=== PATIENT | female | born 1980 | race Hispanic/Latino ===

== ENCOUNTER 2019-10-06 00:19 | Emergency (ER) | payer OTHER ==
--- OUTSIDE RECORDS SUMMARY | 2019-10-06 00:23 | XMS REPORT ---
:1980 [facility] Address [address] [place] [address] Care Team Providers Name Role Phone Unavailable Unavailable Unavailable Payers Payer Name Policy Type Policy Number Effective Date Expiration Date Problems This patient has no known problems. Allergies, Adverse Reactions, Alerts Allergy Allergy Status Severity Reaction(s) Onset Inactive Treating Comments Name Type Date Date Clinician morphine DA Active U 2019-05 00:00:0 0 codeine DA Active U 2019-05 00:00:0 0 latex DA Active U 2019-05 00:00:0 0 Medications This patient has no known medications. Results Test Description Test Time Test Comments Text Results Atomic Results Result Comments SURG 2019-06-03 RUN DATE: 14:49:00 06/03/19 [facility] - LAB PAGE 1 RUN TIME: 1449 Specimen Inquiry RUN USER: INTERFACE PATIENT: ENMANUEL STEWART LOC: NAJMA U #: [id number] AGE/SX: 38/F ROOM: RE06/02/19[facility] DR: Bessy Osman : 84 BED: DIS: [place]US[place] [facility] [place] SPEC #: [id number] RECD: 06/02/19 STATUS: MACY REQ # : [id number] GLORIA: 06/02/19 [facility] DR: Bessy Osman MD ENTERED: 06/02/19 SP TYPE: SURG OTHR DR: Edward Salomon MD ORDERED: SURG PATH LVL 2, SURG PATH LVL 4/ COPIES TO: Bessy Osman MD [address] [place] [address] Edward Salomon MD [address] [place] [address] HISTOLOGY: TISSUE ID BLK PCS CASSI LEV PROCEDURE DISPOSITION ____ ___ ___ ___ __ PELVIC ORGANS A 1 1 FALLOPIAN TUBE, B 1 1 PELVIC ORGANS C 1 1 PROCEDURES: SURG PATH LVL 2 (06/02/19) SURG PATH LVL 4 (11/19/19-1430) TISSUES: A. PELVIC ORGANS, NOS - ENDOMETRIAL CURETTING B. FALLOPIAN TUBE, NOS - LEFT AND RIGHT FALLOPIAN TUBE C. PELVIC ORGANS, NOS - LEFT LATERAL WALL UTEROSACRAL ENDOMETRIOSIS CLINICAL HISTORY EXCESSIVE MENSTRUATION -N92.0; PELVIC/ROBERT PAIN -R10.2 CPT CODES CPT CODE(S): 45225 , 39353K7 , , , , , FINAL DIAGNOSIS A. Uterus, endometrium, curettage: ENDOMETRIAL POLYP B. Fallopian tubes, left and right, salpingectomy: CONTINUED ON NEXT PAGE RUN DATE: 06/03/19 [facility] - [facility] PAGE 2 RUN TIME: 1449 Specimen Inquiry RUN USER: INTERFACE SPEC #: [facility]:[id number] PATIENT: ENMANUEL STEWART #[id number] (Continued) FINAL DIAGNOSIS (Continued) FALLOPIAN TUBES WITH PARATUBAL CYSTS C. Uterosacral, left lateral wall, excision: HEMORRHAGIC SOFT TISSUE GROSS DESCRIPTION A. Endometrial curettings. Received in formalin are fragments of arvizu-brown soft tissue admixed with hemorrhagic viscous material and dark brown blood clots, 1.5 x 1.0 x 0.3 cm in aggregate. The entire specimen submitted as A. B. Left and right fallopian tubes. Received in formalin are two short segments of fallopian tubes with fimbriated ends, 1.2 x 1.2 x 0.6 and 1.5 x 1.2 x 0.8 cm and two cylindrical segments of fallopian tubes, 1.7 x 0.6 x 0.3 and 3.0 x 0.6 x 0.4 cm. The segments of fallopian tube have patent lumen and are grossly unremarkable. The short segment of fallopian tube with fimbriated ends are entirely submitted separately labeled B1 and B2 and credit and collections representative sections of the longer segments of fallopian tube in B3 and B4. C. Left lateral wall uterosacral endometriosis. Received in formalin is a rugged irregular fragment of red-brown soft tissue, 3.0 x 0.6 x 0.4 cm. The specimen is serially sectioned and consists of red- brown soft tissue with some cautery contreras along the edges. The entire specimen submitted as C1 and C2. ba/nr Grossing performed at [facility] Pathology, [address] [place] [address], [address], [place] [address]. Dinkey Motor Operator: Bobby Daniel M.D. MICROSCOPIC DESCRIPTION A. Endometrial curettings. Sections demonstrate dilated endometrial glands with prominent blood vessels. No hyperplasia or atypia is seen. B. Left and right fallopian tubes. Sections demonstrate portions of fallopian tubes with fimbriated end and complete cross section. Associated paratubal cysts are also identified. C. Left lateral wall uterosacral endometriosis. Sections demonstrate soft tissue with associated hemorrhage. Definitive endometrial stroma or glands are not identified. Signed SIGNATURE ON FILE Mitch Rivas 1449 END OF REPORT UR HCG QUAL 2019-06-02 07:13:00 Test Item Value Reference Range Comments UR HCG QUAL (test code=HCGQLU) NEGATIVE NEGATIVE URINALYSIS [id number] 11:41:00 Test Item Value Reference Range Comments UA GLUCOSE DIPSTICK (test code=DGLUU) NEGATIVE mg/dL NEG UA BILIRUBIN DIPSTICK (test code=BILU) NEGATIVE mg/dL NEG UA KETONE DIPSTICK (test code=KETU) NEGATIVE mg/dL NEG UA SPECIFIC GRAVITY (test code=SGU) 1.010 SG 1.005-1.030 UA BLOOD DIPSTICK (test code=DARYL) 3+ mg/DL NEG UA PH DIPSTICK (test code=SHELBIE) 7.0 pH UNITS 5.0-7.0 UA PROTEIN DIPSTICK (test code=PROU) NEGATIVE mg/dL NEG UA UROBILINIOGEN DIPSTICK (test code=URO) 0.2 mg/dL <2.0 UA NITRITE DIPSTICK (test code=GERALDO) NEGATIVE SCREEN NEG UA LEUKOCYTE ESTERASE DIPSTICK (test NEGATIVE Leuk/mcL NEGATIVE code=LEUU) Urine Specimen Type: Clean CatchCBC W/AUTO [id number] 11:39:00 Test Item Value Reference Range Comments WHITE BLOOD CELL (test code=WBC) 5.6 K/mm3 3.5-11.0 RED BLOOD CELL (test code=RBC) 4.77 M/mm3 4.70-6.10 HEMOGLOBIN (test code=HGB) 13.0 G/DL 10.4-14.9 HEMATOCRIT (test code=HCT) 39.8 % 31.5-44.1 MEAN CELL VOLUME (test code=MCV) 83.4 Fl 84.5-98.6 MEAN CELL HGB (test code=MCH) 27.3 pg 27.0-34.2 MEAN CELL HGB CONCETRATION (test code=MCHC) 32.7 G/DL 31.5-34.0 RED CELL DISTRIBUTION WIDTH (test code=RDW) 15.9 SD 11.5-14.5 PLATELET COUNT (test code=PLT) 326.0 K/mm3 150-450 MEAN PLATELET VOLUME (test code=MPV) 10.20 fL 7.0-10.5 NEUTROPHIL % (test code=NT%) 59.7 % 40-76 LYMPHOCYTE % (test code=LY%) 30.9 % 20.5-51.1 MONOCYTE % (test code=MO%) 8.1 % 1.7-9.3 EOSINOPHIL % (test code=EO%) 0.9 % 0.0-6.0 BASOPHIL % (test code=BA%) 0.4 % 0.0-2.0 NEUTROPHIL # (test code=NT#) 3.32 K/mm3 1.8-7.6 LYMPHOCYTE # (test code=LY#) 1.7 K/mm3 0.6-3.2 MONOCYTE # (test code=MO#) 0.5 K/mm3 0.3-1.1 EOSINOPHIL # (test code=EO#) 0.1 K/mm3 0.0-0.4 BASOPHIL # (test code=BA#) 0.0 K/mm3 0.0-0.1 MANUAL DIFF REQUIRED (test code=MDIFF) NO DIFF/SCN CRITERIA
[2019-10-06] MEDS ORDERED: MECLIZINE HCL 12.5 MG TAB ONE (01:25)
[2019-10-06] MEDS ORDERED: METHYLPREDNISOLONE 125 MG INJ ONE (01:25)
[2019-10-06] MEDS ORDERED: NA CHLORIDE 0.9% 1,000 ML ONE (01:25)
[2019-10-06 02:03] LABS: Absolute Lymphocytes (CBC) 3.4 K/uL (0.7-4.9); Basophils % 0.9 % (0-1.3); Hematocrit 39.1 % (36.0-45.0); Lymphocytes % 41.5 % (15.3-44.8); RBC Red Blood Cell Count 4.92 M/uL (3.86-4.86)
[2019-10-06 02:10] LABS: BUN Blood Urea Nitrogen 13 mg/dL (7-18); Bicarbonate 27 mmol/L (21-32); Glucose Level 86 mg/dL (74-106); Potassium 3.7 mmol/L (3.5-5.1); Sodium Level 139 mmol/L (136-145)
--- NOTE | 2019-10-06 02:51 | EDPHYS ---
Physician Documentation [facility] Name: Juany Curtis Age: 39 yrs Sex: Female : 1980 Arrival Date: 10/06/2019 Time: 00:24 Bed 6 Private MD: ED Physician Kevan Pickering HPI: 10/05 01:23 This 39 yrs old Female presents to ER via Ambulatory with complaints of pkl Dizziness, Ear Pain, Neck Problem, Chest Heaviness. 01:23 The patient presents with lightheadedness, sense of spinning. Onset: The pkl symptoms/episode began/occurred just prior to arrival, 2 hour(s) ago. The patient has experienced a previous episode, approximately 10 days ago. 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 - Social history:: Smoking status: Patient denies any tobacco usage or history of. ROS: 01:23 Eyes: Negative for injury, pain, redness, and discharge, ENT: Negative for injury, pkl pain, and discharge, Neck: Negative for injury, pain, and swelling, Cardiovascular: Negative for chest pain, palpitations, and edema, Respiratory: Negative for shortness of breath, cough, wheezing, and pleuritic chest pain, Abdomen/GI: Negative for abdominal pain, nausea, vomiting, diarrhea, and constipation, Back: Negative for injury and pain, : Negative for injury, bleeding, discharge, and swelling, MS/Extremity: Negative for injury and deformity, Skin: Negative for injury, rash, and discoloration. 01:23 Neuro: Positive for dizziness. Exam: 01:23 Head/Face: Normocephalic, atraumatic. Eyes: Pupils equal round and reactive to light, pkl extra-ocular motions intact. Lids and lashes normal. Conjunctiva and sclera are non-icteric and not injected. Cornea within normal limits. Periorbital areas with no swelling, redness, or edema. ENT: Nares patent. No nasal discharge, no septal abnormalities noted. Tympanic membranes are normal and external auditory canals are clear. Oropharynx with no redness, swelling, or masses, exudates, or evidence of obstruction, uvula midline. Mucous membranes moist. Neck: Trachea midline, no thyromegaly or masses palpated, and no cervical lymphadenopathy. Supple, full range of motion without nuchal rigidity, or vertebral point tenderness. No Meningismus. Chest/axilla: Normal chest wall appearance and motion. Nontender with no deformity. No lesions are appreciated. Cardiovascular: Regular rate and rhythm with a normal S1 and S2. No gallops, murmurs, or rubs. Normal PMI, no JVD. No pulse deficits. Respiratory: Lungs have equal breath sounds bilaterally, clear to auscultation and percussion. No rales, rhonchi or wheezes noted. No increased work of breathing, no retractions or nasal flaring. Abdomen/GI: Soft, non-tender, with normal bowel sounds. No distension or tympany. No guarding or rebound. No evidence of tenderness throughout. Back: No spinal tenderness. No costovertebral tenderness. Full range of motion. Skin: Warm, dry with normal turgor. Normal color with no rashes, no lesions, and no evidence of cellulitis. MS/ Extremity: Pulses equal, no cyanosis. Neurovascular intact. Full, normal range of motion. Neuro: Awake and alert, GCS 15, oriented to person, place, time, and situation. Cranial nerves II-XII grossly intact. Motor strength 5/5 in all extremities. Sensory grossly intact. Cerebellar exam normal. Normal gait. Vital Signs: 00:38 BP 153 / 93; Pulse 84; Resp 16 S; Temp 98.5(O); Pulse Ox 100% on R/A; Weight 68.04 kg bb (R); Height 5 ft. 0 in. (152.40 cm) (R); Pain 4/10; 01:43 BP 149 / 87; Pulse 79; Resp 16 S; Pulse Ox 100% on R/A; jd3 02:40 Pulse 65; Resp 14; Pulse Ox 100% on R/A; ch 02:43 BP 130 / 68; ch 03:00 Temp 98.3(O); jd3 00:38 Body Mass Index 29.29 (68.04 kg, 152.40 cm) bb MDM: 00:27 Patient medically screened. pkl 02:46 Data reviewed: vital signs, nurses notes, lab test result(s). ED course: Patient pkl feeling better. Discussed lab. results with patient Advised to follow up with PCP in 2 to 3 days. Patient understood instructions. 10/05 01:14 Order name: CBC with Diff; Complete Time: 02:44 pkl 10/05 01:14 Order name: Chem 7; Complete Time: 02:44 pkl 10/05 01:14 Order name: Flu; Complete Time: :44 pkl 10/05 01:14 Order name: Strep; Complete Time: :44 pkl 10/05 01:31 Order name: Sed Rate; Complete Time: 44 pkl 10/05 02:26 Order name: Throat Culture EDMS Administered Medications: 01:28 Drug: Antivert 50 mg Route: PO; jd3 02:25 Follow up: Response: No adverse reaction jd3 01:42 Drug: NS 0.9% 1000 ml Route: IV; Rate: 1000 ml; Site: right antecubital; jd3 02:40 Follow up: Response: No adverse reaction; IV Status: Completed infusion; IV Intake: jd3 1000ml 01:42 Drug: SOLU-Medrol 125 mg Route: IVP; Site: right antecubital; jd3 02:40 Follow up: Response: No adverse reaction jd3 Disposition: 10/06/19 02:50 Discharged to Home. Impression: Acute labyrinthitis. - Condition is Stable. - Prescriptions for Antivert 25 mg Oral Tablet - take 1 tablet by ORAL route every 8 hours As needed; 20 tablet. - Medication Reconciliation Form, Thank You Letter, Antibiotic Education, Prescription Opioid Use, Work release form form. - Follow up: Private Physician; When: 2 - 3 days; Reason: Re-evaluation by your physician. - Problem is new. - Symptoms have improved. Signatures: Dispatcher [employer] EDMS Kevan Pickering MD MD pkBarbara Wu, RN RN Manfred Mckeon RN RN jd3 Corrections: (The following items were deleted from the chart) 03:04 02:50 10/06/2019 02:50 Discharged to Home. Impression: Acute labyrinthitis. Condition jd3 is Stable. Forms are Medication Reconciliation Form, Thank You Letter, Antibiotic Education, Prescription Opioid Use. Follow up: Private Physician; When: 2 - 3 days; Reason: Re-evaluation by your physician. Problem is new. Symptoms have improved. pkl
--- NOTE | 2019-10-06 02:51 | ER ---
Nurse's Notes [facility] Name: Juany Curtis Age: 39 yrs Sex: Female : 1980 Arrival Date: 10/06/2019 Time: 00:24 Bed 6 Private MD: Diagnosis: Acute labyrinthitis Presentation: 10/05 00:38 Chief complaint: Patient states: about 10 days ago she started feeling dizzy and faint bb went to her PCP and was given antibiotics for an ear infection then started feeling better but earlier tonight she had another episode of feeling dizzy but now she is having ear pain again and neck pain. Coronavirus screen: Patient denies fever greater than 100.4F, cough, shortness of breath, or difficulty breathing. Proceed with normal triage process. Ebola Screen: No symptoms or risks identified at this time. Initial Sepsis Screen: Does the patient meet any 2 criteria? No. Patient's initial sepsis screen is negative. Does the patient have a suspected source of infection? No. Patient's initial sepsis screen is negative. Risk Assessment: Do you want to hurt yourself or someone else? Patient reports no desire to harm self or others. Onset of symptoms was October 02, 2019. 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 - Social history:: Smoking status: Patient denies any tobacco usage or history of. Screenin:43 Abuse screen: Denies threats or abuse. Nutritional screening: No deficits noted. jd3 Tuberculosis screening: No symptoms or risk factors identified. Fall Risk Ambulatory Aid- None/Bed Rest/Nurse Assist (0 pts). Gait- Normal/Bed Rest/Wheelchair (0 pts) Mental Status- Oriented to own ability (0 pts). Total Haji Fall Scale indicates No Risk (0-24 pts). Assessment: 00:40 General: Appears in no apparent distress. uncomfortable, Behavior is calm, cooperative, jd3 appropriate for age, anxious. Pain: Complains of pain in chest and neck Quality of pain is described as pressure. Neuro: Level of Consciousness is awake, alert, obeys commands, Oriented to person, place, time, situation, Reports dizziness. Cardiovascular: Reports chest pressure Heart tones S1 S2 present Capillary refill < 3 seconds Patient's skin is warm and dry. Respiratory: Airway is patent Respiratory effort is even, unlabored, Respiratory pattern is regular, symmetrical, Breath sounds are clear bilaterally. Denies cough. GI: Abdomen is round non-distended, Patient currently denies constipation, diarrhea, nausea, vomiting. : No signs and/or symptoms were reported regarding the genitourinary system. EENT: Throat is clear Reports pain on and off in ears.. Derm: Skin is intact, Skin is dry, Skin is normal, Skin temperature is warm. Musculoskeletal: Circulation, motion, and sensation intact. Range of motion: intact in all extremities. 01:43 Reassessment: Patient appears in no apparent distress at this time. No changes from jd3 previously documented assessment. Patient and/or family updated on plan of care and expected duration. Pain level reassessed. Patient is alert, oriented x 3, equal unlabored respirations, skin warm/dry/pink. 02:40 Reassessment: Patient appears in no apparent distress at this time. Patient and/or ch family updated on plan of care and expected duration. Pain level reassessed. Patient is alert, oriented x 3, equal unlabored respirations, skin warm/dry/pink. Patient states feeling better. Patient states symptoms have improved. Vital Signs: 00:38 BP 153 / 93; Pulse 84; Resp 16 S; Temp 98.5(O); Pulse Ox 100% on R/A; Weight 68.04 kg bb (R); Height 5 ft. 0 in. (152.40 cm) (R); Pain 4/10; 01:43 BP 149 / 87; Pulse 79; Resp 16 S; Pulse Ox 100% on R/A; jd3 02:40 Pulse 65; Resp 14; Pulse Ox 100% on R/A; ch 02:43 BP 130 / 68; ch 03:00 Temp 98.3(O); jd3 00:38 Body Mass Index 29.29 (68.04 kg, 152.40 cm) ED Course: 00:24 Patient arrived in ED. cf2 00:27 Kevan Pickering MD is Attending Physician. pkday 00:36 Manfred Seay RN is Primary Nurse. jd3 00:43 Triage completed. bb 00:43 Patient has correct armband on for positive identification. Bed in low position. Call jd3 light in reach. Side rails up X 1. Pulse ox on. NIBP on. 00:43 Arm band placed on. jd3 01:20 No provider procedures requiring assistance completed. Inserted saline lock: 22 gauge ch in right antecubital area, using aseptic technique. Blood collected. Started by Addie. 02:43 No apparent distress. Resting quietly. ch 03:01 IV discontinued, intact, bleeding controlled, No redness/swelling at site. Pressure jd3 dressing applied. Administered Medications: 01:28 Drug: Antivert 50 mg Route: PO; jd3 02:25 Follow up: Response: No adverse reaction jd3 01:42 Drug: NS 0.9% 1000 ml Route: IV; Rate: 1000 ml; Site: right antecubital; jd3 02:40 Follow up: Response: No adverse reaction; IV Status: Completed infusion; IV Intake: jd3 1000ml 01:42 Drug: SOLU-Medrol 125 mg Route: IVP; Site: right antecubital; jd3 02:40 Follow up: Response: No adverse reaction jd3 Intake: 02:40 IV: 1000ml; Total: 1000ml. jd3 Outcome: 02:50 Discharge ordered by . pkl 03:01 Discharged to home ambulatory, with family. jd3 03:01 Condition: stable 03:01 Discharge instructions given to patient, Instructed on discharge instructions, follow up and referral plans. medication usage, Demonstrated understanding of instructions, follow-up care, medications, Prescriptions given X 1. 03:04 Patient left the ED. jd3 Signatures: Brittany Ibarra, RN RN Kevan Pickering MD MD pkl Ballard, Brenda, RN RN Manfred Seay RN RN jYodit Ennis cf2
[2019-10-06 03:18] VITALS: O2SAT 100
[2019-10-06 03:22] VITALS: BP 130/68
[2019-10-06 03:23] VITALS: TEMP 98.3
== END 2019-10-06 03:04 | disposition home or self-care (01) ==
LOC: ER 00:19
DX: H83.09 Labyrinthitis, unspecified ear (principal); I10 Essential (primary) hypertension; E03.9 Hypothyroidism, unspecified; Z88.5 Allergy status to narcotic agent
CPT/HCPCS: 96361; 87070; 85025; 80048; 36415; 87081; 85652; 87804 ×2; 96374; 99284; J8597; J7030; J2930

== ENCOUNTER 2020-03-17 06:55 | Day surgery (SDC) | payer OTHER ==
[2020-03-14 12:53] LABS: Urine Appearance CLEAR; Urine Bilirubin NEGATIVE (NEG); Urine Blood NEGATIVE (NEG); Urine Color YELLOW; Urine Glucose NEGATIVE (NEG); Urine Protein NEGATIVE (NEG); Urine Specific Gravity 1.025 (1.005-1.030); Urine pH 6.5 (5.0-7.0)
[2020-03-14 12:54] LABS: Urine Microscopic Reflex NO UMIC
[2020-03-14 13:23] LABS: Absolute Lymphocytes (CBC) 2.2 K/uL (0.7-4.9); Basophils % 0.8 % (0-1.3); Hematocrit 36.2 % (36.0-45.0); Lymphocytes % 27.3 % (15.3-44.8); MPV 9.2 fL (7.6-11.3); RBC Red Blood Cell Count 4.71 M/uL (3.86-4.86)
--- OUTSIDE RECORDS SUMMARY | 2020-03-17 07:23 | XMS REPORT | Continuity of Care Document ---
:1980 Author Organization [facility] t Address [address] [place] [address] Care Team Providers Name Role Phone Unavailable Unavailable Unavailable Payers Payer Name Policy Type Policy Number Effective Date Expiration Date S ource Problems This patient has no known problems. Allergies, Adverse Reactions, Alerts Allergy Allergy Status Severity Reaction(s) Onset Inactive Treating Comm ents Source Name Type Date Date Clinician morphine DA Active 2018-07 [facility] 07-22 [place] 00:00: d 00 [facility] codeine DA Active 2018-07 [facility] 07-22 [place] 00:00: d 00 [facility] latex DA Active 2018-07 [facility] 07-22 [place] 00:00: d 00 [facility] Medications This patient has no known medications. Procedures This patient has no known procedures. Results Test Description Test Time Test Comments Results Result Comments Source SURG 2019-06-03 14:49:00 --------RUN DATE: 06/03/19 [facility] - LAB PAGE 1 RUN TIME: 1449 Specimen Inquiry RUN USER: INTERFACE --------PATIENT: ENMANUEL STEWART LOC: NAJMA U #: [id number] AGE/SX: 38/F ROOM: RE06/02/19[facility] DR: Bessy Osman : [birth year] BED: DIS: STATUS: [facility] TLOC: -------- SPEC #: [id number]:[id number] RECD: 06/02/19 STATUS: MACY REQ #: [id number] GLORIA: 06/02/[address] [facility] [address]: Bessy Osman MD ENTERED: 06/02/197220 SP TYPE: SURG OTHR DR: Edward Salomon MD ORDERED: SURG PATH LVL 2, SURG PATH LVL / COPIES TO: Bessy Osman MD [address] [place] [address] Edward Salomon MD [address] [place] [address] HISTOLOGY: TISSUE ID BLK PCS CASSI LEV PROCEDURE DISPOSITION ____ ___ ___ ___ PELVIC ORGANS A 1 1 FALLOPIAN TUBE, B 1 1 PELVIC ORGANS C 1 1 PROCEDURES: SURG PATH LVL 2 (06/02/19-143) SURG PATH LVL 4 (06/02/19-1429) TISSUES: A. PELVIC ORGANS, NOS - ENDOMETRIAL CURETTING B. FALLOPIAN TUBE, NOS - LEFT AND RIGHT FALLOPIAN TUBE C. PELVIC ORGANS, NOS - LEFT LATERAL WALL UTEROSACRAL ENDOMETRIOSIS CLINICAL HISTORY EXCESSIVE MENSTRUATION -N92.0; PELVIC/ROBERT PAIN -R10.2 CPT CODES CPT CODE(S): 65668 , 89550F1 , , , , , FINAL DIAGNOSIS A. Uterus, endometrium, curettage: ENDOMETRIAL POLYP B. Fallopian tubes, left and right, salpingectomy: CONTINUED ON NEXT PAGE --------RUN DATE: 06/03/19 [facility] - [facility] PAGE 2 RUN TIME: 1449 Specimen Inquiry RUN USER: INTERFACE --------SPEC #: [facility]:[id number] PATIENT: ENMANUEL STEWART #[id number] (Continued) FINAL DIAGNOSIS (Continued) FALLOPIAN TUBES WITH [...] submitted separately labeled B1 and B2 and aircraft sales representative sections of the longer segments of fallopian tube in B3 and B4. C. Left lateral wall uterosacral endometriosis. Received in formalin is a rugged irregular fragment of red-brown soft tissue, 3.0 x 0.6 x 0.4 cm. The specimen is serially sectioned and consists of red-brown soft tissue with some cautery contreras along the edges. The entire specimen submitted as C1 and C2. ba/nr Grossing performed at [facility] Pathology, [address], [address], [place] [address]. Program Advisor: Bobby Daniel M.D. MICROSCOPIC DESCRIPTION A. Endometrial [...] identified. Signed SIGNATURE ON FILE Mitch Rivas 06/03/19 0239 -------- END OF REPORT UR HCG QUAL 2019-06-02 07:13:00 Test Item Value Reference Range Interpretation Comme nts UR HCG QUAL (test code = HCGQLU) NEGATIVE NEGATIVE URINALYSIS [id number] 11:41:00 Test Item Value Reference Range Interpretation Comments UA GLUCOSE DIPSTICK (test NEGATIVE mg/dL NEG code = DGLUU) UA BILIRUBIN DIPSTICK (test NEGATIVE mg/dL NEG code = BILU) UA KETONE DIPSTICK (test NEGATIVE mg/dL NEG code = KETU) UA SPECIFIC GRAVITY (test 1.010 SG 1.005-1.030 code = SGU) UA BLOOD DIPSTICK (test 3+ mg/DL NEG A code = DARYL) UA PH DIPSTICK (test code = 7.0 pH UNITS 5.0-7.0 SHELBIE) UA PROTEIN DIPSTICK (test NEGATIVE mg/dL NEG code = PROU) UA UROBILINIOGEN DIPSTICK 0.2 mg/dL <2.0 (test code = URO) UA NITRITE DIPSTICK (test NEGATIVE SCREEN NEG code = GERALDO) UA LEUKOCYTE ESTERASE NEGATIVE Leuk/mcL NEGATIVE DIPSTICK (test code = LEUU) Urine Specimen Type: Clean CatchCBC W/AUTO [id number] 11:39:00 Test Item Value Reference Range Interpretation Comments WHITE BLOOD CELL (test code = 5.6 K/mm3 3.5-11.0 N WBC) RED BLOOD CELL (test code = RBC) 4.77 M/mm3 4.70-6.10 N HEMOGLOBIN (test code = HGB) 13.0 G/DL 10.4-14.9 N HEMATOCRIT (test code = HCT) 39.8 % 31.5-44.1 N MEAN CELL VOLUME (test code = 83.4 Fl 84.5-98.6 L MCV) MEAN CELL HGB (test code = MCH) 27.3 pg 27.0-34.2 N MEAN CELL HGB CONCETRATION (test 32.7 G/DL 31.5-34.0 N code = MCHC) RED CELL DISTRIBUTION WIDTH (test 15.9 SD 11.5-14.5 H code = RDW) PLATELET COUNT (test code = PLT) 326.0 K/mm3 150-450 N MEAN PLATELET VOLUME (test code = 10.20 fL 7.0-10.5 N MPV) NEUTROPHIL % (test code = NT%) 59.7 % 40-76 N LYMPHOCYTE % (test code = LY%) 30.9 % 20.5-51.1 N MONOCYTE % (test code = MO%) 8.1 % 1.7-9.3 N EOSINOPHIL % (test code = EO%) 0.9 % 0.0-6.0 N BASOPHIL % (test code = BA%) 0.4 % 0.0-2.0 N NEUTROPHIL # (test code = NT#) 3.32 K/mm3 1.8-7.6 N LYMPHOCYTE # (test code = LY#) 1.7 K/mm3 0.6-3.2 N MONOCYTE # (test code = MO#) 0.5 K/mm3 0.3-1.1 N EOSINOPHIL # (test code = EO#) 0.1 K/mm3 0.0-0.4 N BASOPHIL # (test code = BA#) 0.0 K/mm3 0.0-0.1 N MANUAL DIFF REQUIRED (test code = NO DIFF/SCN CRITERIA MDIFF)
[2020-03-17 07:32] LABS: Specific Gravity 1.025 (1.005-1.030)
[2020-03-17] MEDS ORDERED: propofoL 200 MG/20 ML VIAL IV ONE (07:37)
[2020-03-17] MEDS ORDERED: FENTANYL CITR 250 MCG/5 ML ONE (07:37)
[2020-03-17] MEDS ORDERED: dexAMETHasone 10 MG/ML VIAL ONE (07:37)
[2020-03-17] MEDS ORDERED: LIDOCAINE 1% MPF 5 ML VIAL ONE (07:37)
[2020-03-17] MEDS ORDERED: NS 0.9% VIAL 10 ML ONE (07:38)
[2020-03-17] MEDS ORDERED: ONDANSETRON 4 MG/2 ML VIAL ONE (07:38)
[2020-03-17] MEDS ORDERED: MIDAZOLAM HCL 2 MG/2 ML INJ ONE (07:38)
[2020-03-17] MEDS ORDERED: VECURONIUM 10 MG/VIAL IV ONE ×2 (07:38→07:42)
[2020-03-17] MEDS ORDERED: LANO/MINERAL OIL/PETRO 3.5 GM ONE (07:42)
[2020-03-17] MEDS ORDERED: CEFAZOLIN/SWI 2gm 2 GM/20 ML SYR ONE (07:55)
[2020-03-17] MEDS ORDERED: SCOPOLAMINE HYDROBROMIDE PATCH TD ONE (07:55)
[2020-03-17] MEDS ORDERED: Ringers Lactate 1,000 ML IV ONE ×2 (07:55→13:12)
[2020-03-17] MEDS ORDERED: BUPIVACAINE 0.25% PF 30 ML VIAL ONE (08:42)
[2020-03-17] MEDS: Ringers Lactate 1,000 ML IV ONE ×2 (10:11→10:25)
[2020-03-17] MEDS ORDERED: KETOROLAC 30 MG/ML INJ ONE (10:23)
[2020-03-17] MEDS ORDERED: NEOSTIGMINE 1 MG/ML -5 ML ONE (10:24)
[2020-03-17] MEDS ORDERED: GLYCOPYRROLATE 0.2 MG/ML SYR ONE ×2 (10:24)
[2020-03-17] MEDS: HYDROMORPHONE HCL 1 MG/ML INJ ONE ×2 (11:10→11:15)
[2020-03-17] MEDS ORDERED: HYDROCODONE/APAP 5/325 MG TAB ONE (11:52)
[2020-03-17 12:08] VITALS: TEMP 97.1
[2020-03-17] MEDS ORDERED: PROMETHAZINE INJ 25 MG/ML AMP ONE (13:12)
[2020-03-17 13:39] VITALS: BP 92/48; O2SAT 100
--- NOTE | 2020-03-17 22:57 | OP ---
Date of Procedure: 03/17/2020 Surgeon: Bessy Osman MD Patient Financial Specialist: Drea Vences Preoperative Diagnoses: Recurrent pelvic pain, menorrhagia (abnormal uterine bleeding-leiomyoma), en dometriosis, deep dyspareunia. Postoperative Diagnoses: Recurrent pelvic pain, menorrhagia (abnormal uterine bleeding-leiomyoma), e ndometriosis, deep dyspareunia, umbilical scar with keloid. Procedures Performed: 1.Total laparoscopic hysterectomy. 2.Left oophorectomy. 3.Endometriosis excision. 4.Umbilical scar keloid removal and revision. Anesthesia: General endotracheal. Estimated Blood Loss: Minimal, less than 50. Urine Output: 250. Specimens: Uterus and left ovary, endometriosis on the left IP ligament and broad ligament proximal to the round ligament. Findings: Endometriosis seen on the left IP ligament and left broad ligament and proximal to the rou nd ligament. Then, there were 2 endometriotic implants on the distal uterosacral ligament on the rig ht side. Periureteric endometriosis removed. The entire rest of the pelvic peritoneum was free of e ndometriosis. There was scar at the scar from the bladder flap. The scar was taken down wi thout any problems. Appendix absent, no stump seen at the end of the cecum. Uterus was slightly enl arged, retroflexed. Right ovary was left intact. Indications: The patient is a 39-year-old who had endometriosis excision and sampling of the endomet rium, did well for some time and then had recurrent pain and dyspareunia and persistent heavy bleedin g, which just became more painful. So, we have discussed about surgical and medical options. She wa s consented for proceeding with the surgical option as she wanted to have a fairly intermediate solution . She fully understood that the pelvic pain may not be resolved and if there is any endometriosis fo und and removed while she could feel better, but there could be recurrent endometriosis. Preservatio n of one or both ovaries was discussed. If there was significant endometriosis on one of the ovaries or there would be a need to remove it in order to prevent recurrent pain or operation that it would be removed. Then, she was consented and brought to the OR. Description Of Procedure: 2 g Ancef given, the patient was taken back to OR, placed in a supine fash ion on operating table. General anesthesia given, placed in a dorsal lithotomy position. Arms tucke d by the side position and checked uterus with cervix anterior retroflexed, no adnexal masses were pa lpable, no nodularity of the uterosacral was palpable. Abdomen, vulva, vagina, and perineum prepped and draped in a sterile fashion. Meade placed to drain the bladder and attached for retrograde filling and large VCare introduced into the uterus and fixed in place, this area draped. 1 cm supraumbilical incision made with a scalpel. The keloid scar that was very thick and deep was a ll excised circumferentially after injecting local here. Then, once the keloid scar was removed, yulissa montemayor went down all the way to her fascia. The fascia was thickened without any other significant hernia or abnormalities, so plan was to excise it all the way to the level of the fascia and shave it off t he fascia and close it, so 0 Vicryl on both sides. Peritoneum entered sharply. S-retract ors placed. Frandy introduced. Site of entry checked after complete insufflation. The patient was placed in T-sophia. Gallbladder, liver, upper abdominal surfaces, omentum were all unremarkable. Afte r the patient was in T-sophia, 5 left and 10 suprapubic ports were placed under direct vision after darin vey of the pelvic cavity as dictated above in the findings. Procedure was started. Endometriosis on the distal right uterosacral ligament was cauterized with the tip of a bipolar [place] grasper re use removing this would detach the uterosacral from the apex of the vagina. There was no other endometriosis seen in the entire pelvic cavity other than on the IP ligament and t he left broad ligament superior to the round ligament insertion so plan was to remove the left ovary. So, infundibulopelvic ligament was cauterized and cut. The broad ligament was taken down along wit h the round ligament. All the endometriosis was included in the specimen. The ovary was detached an d placed in the posterior cul-de-sac. Then, peritoneum opened distal to the round ligament all the w ay to the bladder flap on the opposite side. Then, posteriorly the peritoneum dissected to the level where endometriosis was excised in the past. This was a bit scarred, so vessels were isolated first , vessels taken down, then dissection was performed to expose the cup on the left side then on the ri ght side. The utero-ovarian ligament, the round ligament and broad ligament were all removed and per itoneum opened to connect the bladder flap and posteriorly taken down to the distal uterosacral with leaving the uterosacrals attached to the apex of the vagina. The vessels were taken down on the righ t side with the basket tip bipolar as well as the LigaSure. Once the vessels on this side were taken , cardinal ligaments were also taken down with the LigaSure, opposite side similar dissection was per formed, then circumferential colpotomy with a monopolar hook blade and specimen detached and pulled o ut through the vagina, ovary pulled out through the vagina as well. Thorough irrigation and suction were performed. There was excellent hemostasis at all the sites and the pedicles, closure of the vag inal cuff after thorough irrigation, 2 simple angle stitches and 3 [id number] in the center. T he uterosacrals were still attached to the apex and they created good apical suspension. All the pedicles were checked. There was excellent peristalsis of the ureter. No evidence of electr ical, mechanical, or thermal injury. Trocars were removed under direct vision. Gas was desufflated. Fascia and skin injected with 0.25% Marcaine at entry and exit. Then, at the umbilical scar, there was a good 1.5 cm fascial incision, so this was closed with the lp of 0 Vicryl in [id number] fashion to reduce the number of knots instead of tying them at both ends. Then, with a 3-0 Monocryl, the umbilicus was reshaped. Then, 5-0 chromic was used to close the skin in a simple interrupted fashion for the keloid to not recur and heal better. Same suture was used for all other skin closures. Fascia at the suprapubic area closed with simple 0 Mychal ryl stitch. All the instrument, needle, and sponge counts were done and were correct at the end of t he case. Meade and the vaginal occluder sponge were removed. She was then taken to the PACU in a stable condition. She has a 1-week followup with me. MICHAEL/CATRACHITO Voice ID: [id number] Report ID: [id number]
== END 2020-03-17 13:59 | disposition home or self-care (01) ==
LOC: OR 06:55
PROVIDERS: ATTEND Obstetrics & Gynecology
PROC: 0UT14ZZ Resection of Left Ovary, Percutaneous Endoscopic Approach (ICD-10-PCS; 2020-03-17)
PROC: 0U544ZZ Destruction of Uterine Supporting Structure, Percutaneous Endoscopic Approach (ICD-10-PCS; 2020-03-17)
PROC: 0JB80ZZ Excision of Abdomen Subcutaneous Tissue and Fascia, Open Approach (ICD-10-PCS; 2020-03-17)
PROC: 0UT94ZZ Resection of Uterus, Percutaneous Endoscopic Approach (ICD-10-PCS; principal; 2020-03-17 08:00)
DX: N92.0 Excessive and frequent menstruation with regular cycle (principal); N93.8 Other specified abnormal uterine and vaginal bleeding; D25.2 Subserosal leiomyoma of uterus; N80.3 Endometriosis of pelvic peritoneum; N80.8 Other endometriosis; N94.12 Deep dyspareunia; N88.8 Other specified noninflammatory disorders of cervix uteri; N72 Inflammatory disease of cervix uteri; N83.02 Follicular cyst of left ovary; L91.0 Hypertrophic scar; Z20.828 Contact with and (suspected) exposure to other viral communicable diseases; D50.0 Iron deficiency anemia secondary to blood loss (chronic); E03.9 Hypothyroidism, unspecified; I10 Essential (primary) hypertension; Z79.899 Other long term (current) drug therapy
CPT/HCPCS: 85025; 36415; 86900; 86850; 81025; 86901; 88307; 81003; 58571; 58662; 11401; 12031; U0002; J2704; J2550; J2250; J3010; J1100; J1170; J2710; J0690; J7120 ×3; J2405

== ENCOUNTER → 2023-08-06 | Emergency (ER) | payer OTHER ==
[~2023-08-06] MED LIST: KETOROLAC 30 MG/ML INJ ONE
--- OUTSIDE RECORDS SUMMARY | 2023-08-06 10:40 | XMS REPORT | Continuity of Care Document ---
Author Name Unknown Address [address] [facility] [address] [place] [address] [facility] thconnect Address [address] [facility]. [address] [place] [address] Care Team Providers Care Steel Sash Erector Name Role Phone Edward Salomon MD Primary Care Physician NICHOL GOMEZ Attending Clinician Unavailable GC_GCBZW_Kadipresley_S Attending Clinician UnavailLEXUS Sen Attending Clinician Unavail Lexus Alonso MD Attending Clinician [phone] Nichol Gomez MD Attending Clinician [phone] Aravind MCNAMARA, Monse CarrascoHBebeto Attending Clinician + [phone] Doctor Unassigned, [place] Attending Clinician U EDWARD Robles Attending Clinician Edward Becker MD Attending Clinician + [phone] Visits, [place] Nurse Attending Clinician Pinky ilable Provider, [facility] Attending Clinician Un available Lab, [facility] F[facility] Pob I Attending Clinician UnavailRaphael Gary Attending Clinician RAPHAEL ROMERO Attending Clinician Unavailab rishabh GC_GCBZW_Kadiyala_S Admitting Clinician MIKAL Colvin Admitting Clinician UnavailEDWARD Fallon Admitting Clinician Riccardo gallegos Payers Payer Name Policy Type Policy Number Effective Date Expirati on Date Source [facility] [id number] 2019 00:00:00 [facility] [id number] 2014 00:00:00 Problems Condition Name Condition Details Condition Category Status Onset Date Resolution Date Last Treatment Date Treating Clinician Comments Source Renal artery stenosis Renal artery stenosis Disease Active 2022-07 00:00: 00 [facility] Primary hypertensi on Primary hypertensi on Disease Active 2022-07 00:00: 00 [facility] Dizziness and giddiness Dizziness and giddiness Disease Active 2022-07 00:00: 00 [facility] Snores Snores Disease Active 2022-07 00:00: 00 [facility] Hypothyroi dism Hypothyroi dism Disease Active 03-14 00:00: 00 Overview: Formattin g of this note might be different from the original. 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 [facility] Allergies, Adverse Reactions, Alerts Allergy Name Allergy Type Status Severity Reaction(s) Onset Date Inactive Date Treating Clinician Comments Source morphine DA Active U 2018-07 00:00: 00 [facility] codeine DA Active U 2018-07 00:00: 00 [facility] latex DA Active U 2018-07 00:00: 00 [facility] NO KNOWN ALLERGIE S Drug Class Active [facility] Social History Social Habit Start Date Stop Date Quantity Comments [facility] function 2023-05-31 00:00:00 2023-05-31 00:00:00 [facility] Exposure to SARS-CoV-2 (event) 2022-08-27 00:00:00 2022-09-06 14:06:00 Not sure [facility] Alcohol intake 2022-09-06 00:00:00 2022-09-06 00:00:00 Current non-drinker of alcohol (finding) [facility] Sex Assigned At 1980 00:00:00 1980 00:00:00 [facility] Smoking Status Start Date Stop Date Source Never smoked tobacco [facility] Medications Ordered Medication Name Filled Medication Name Start Date Stop Date Current Medication? Ordering Clinician Indication Dosage Frequency Signature (SIG) Comments Components Source lisinopril (ZESTRIL) 5 mg tablet 2022-07 14:52: 02 05-15 00:00 :00 No Take by mouth daily. [facility] amLODIPine (NORVASC) 5 mg tablet 2022-07 14:52: 02 05-15 00:00 :00 No 5mg Take 5 mg by mouth daily. [facility] lisinopril (ZESTRIL) 5 mg tablet 2022-07 14:52: 02 05-15 00:00 :00 No Take by mouth daily. [facility] amLODIPine (NORVASC) 5 mg tablet 2022-07 14:52: 02 05-15 00:00 :00 No 5mg Take 5 mg by mouth daily. [facility] lisinopril (ZESTRIL) 5 mg tablet 2022-07 14:52: 02 05-15 00:00 :00 No Take by mouth daily. [facility] amLODIPine (NORVASC) 5 mg tablet 2022-07 14:52: 02 05-15 00:00 :00 No 5mg Take 5 mg by mouth daily. [facility] lisinopriL 5 mg tablet 2022-07 00:00: 00 Yes [id number] 5mg Take 1 tablet by mouth in the morning. [facility] amLODIPine 5 mg tablet 2022-07 00:00: 00 Yes [id number] 5mg Take 1 tablet by mouth in the morning. [facility] lisinopriL 5 mg tablet 2022-07 00:00: 00 Yes [id number] 5mg Take 1 tablet by mouth in the morning. [facility] amLODIPine 5 mg tablet 2022-07 00:00: 00 Yes [id number] 5mg Take 1 tablet by mouth in the morning. [facility] lisinopriL 5 mg tablet 2022-07 00:00: 00 Yes [id number] 5mg Take 1 tablet by mouth in the morning. [facility] amLODIPine 5 mg tablet 2022-07 00:00: 00 Yes [id number] 5mg Take 1 tablet by mouth in the morning. [facility] lisinopriL 5 mg tablet 2022-07 00:00: 00 Yes [id number] 5mg Take 1 tablet by mouth in the morning. [facility] amLODIPine 5 mg tablet 2022-07 00:00: 00 Yes [id number] 5mg Take 1 tablet by mouth in the morning. [facility] lisinopriL 5 mg tablet 2022-07 00:00: 00 Yes [id number] 5mg Take 1 tablet by mouth in the morning. [facility] amLODIPine 5 mg tablet 2022-07 00:00: 00 Yes [id number] 5mg Take 1 tablet by mouth in the morning. [facility] lisinopriL 5 mg tablet 2022-07 00:00: 00 Yes [id number] 5mg Take 1 tablet by mouth in the morning. [facility] amLODIPine 5 mg tablet 2022-07 00:00: 00 Yes [id number] 5mg Take 1 tablet by mouth in the morning. [facility] lisinopril (ZESTRIL) 5 mg tablet 09-06 14:27: 20 Yes Take by mouth daily. [facility] amLODIPine (NORVASC) 5 mg tablet 09-06 14:27: 20 Yes 5mg Take 5 mg by mouth daily. [facility] cholecalcif cece, vitamin D3, 25 mcg (1,000 unit) tablet 09-06 14:27: 20 Yes 1000U Take 1,000 Units by mouth daily. [facility] lisinopril (ZESTRIL) 5 mg tablet 09-06 14:27: 20 Yes Take by mouth daily. [facility] amLODIPine (NORVASC) 5 mg tablet 09-06 14:27: 20 Yes 5mg Take 5 mg by mouth daily. [facility] cholecalcif cece, vitamin D3, 25 mcg (1,000 unit) tablet 09-06 14:27: 20 Yes 1000U Take 1,000 Units by mouth daily. [facility] lisinopril (ZESTRIL) 5 mg tablet 09-06 14:27: 20 Yes Take by mouth daily. [facility] amLODIPine (NORVASC) 5 mg tablet 09-06 14:27: 20 Yes 5mg Take 5 mg by mouth daily. [facility] cholecalcif cece, vitamin D3, 25 mcg (1,000 unit) tablet 09-06 14:27: 20 Yes 1000U Take 1,000 Units by mouth daily. [facility] lisinopril (ZESTRIL) 5 mg tablet 09-06 14:27: 20 Yes Take by mouth daily. [facility] amLODIPine (NORVASC) 5 mg tablet 09-06 14:27: 20 Yes 5mg Take 5 mg by mouth daily. [facility] cholecalcif cece, vitamin D3, 25 mcg (1,000 unit) tablet 09-06 14:27: 20 Yes 1000U Take 1,000 Units by mouth daily. [facility] cholecalcif cece, vitamin D3, 25 mcg (1,000 unit) tablet 09-06 14:27: 20 Yes 1000U Take 1,000 Units by mouth daily. [facility] cholecalcif cece, vitamin D3, 25 mcg (1,000 unit) tablet 09-06 14:27: 20 Yes 1000U Take 1,000 Units by mouth daily. [facility] cholecalcif cece, vitamin D3, 25 mcg (1,000 unit) tablet 09-06 14:27: 20 Yes 1000U Take 1,000 Units by mouth daily. [facility] cholecalcif cece, vitamin D3, 25 mcg (1,000 unit) tablet 09-06 14:27: 20 Yes 1000U Take 1,000 Units by mouth daily. [facility] cholecalcif cece, vitamin D3, 25 mcg (1,000 unit) tablet 09-06 14:27: 20 Yes 1000U Take 1,000 Units by mouth daily. [facility] cholecalcif cece, vitamin D3, 25 mcg (1,000 unit) tablet 09-06 14:27: 20 Yes 1000U Take 1,000 Units by mouth daily. [facility] lisinopril (ZESTRIL) 5 mg tablet 09-06 14:27: 20 Yes Take by mouth daily. [facility] amLODIPine (NORVASC) 5 mg tablet 09-06 14:27: 20 Yes 5mg Take 5 mg by mouth daily. [facility] cholecalcif cece, vitamin D3, 25 mcg (1,000 unit) tablet 09-06 14:27: 20 Yes 1000U Take 1,000 Units by mouth daily. [facility] lisinopril (ZESTRIL) 5 mg tablet 09-06 14:27: 20 Yes Take by mouth daily. [facility] amLODIPine (NORVASC) 5 mg tablet 09-06 14:27: 20 Yes 5mg Take 5 mg by mouth daily. [facility] cholecalcif cece, vitamin D3, 25 mcg (1,000 unit) tablet 09-06 14:27: 20 Yes 1000U Take 1,000 Units by mouth daily. [facility] lisinopril (ZESTRIL) 5 mg tablet 09-06 14:27: 20 Yes Take by mouth daily. [facility] amLODIPine (NORVASC) 5 mg tablet 09-06 14:27: 20 Yes 5mg Take 5 mg by mouth daily. [facility] cholecalcif cece, vitamin D3, 25 mcg (1,000 unit) tablet 09-06 14:27: 20 Yes 1000U Take 1,000 Units by mouth daily. [facility] lisinopril (ZESTRIL) 5 mg tablet 09-06 14:27: 20 Yes Take by mouth daily. [facility] amLODIPine (NORVASC) 5 mg tablet 09-06 14:27: 20 Yes 5mg Take 5 mg by mouth daily. [facility] cholecalcif cece, vitamin D3, 25 mcg (1,000 unit) tablet 09-06 14:27: 20 Yes 1000U Take 1,000 Units by mouth daily. [facility] liothyronin e 25 mcg tablet 08-30 00:00: 00 Yes [facility] liothyronin e 25 mcg tablet 08-30 00:00: 00 Yes [facility] liothyronin e 25 mcg tablet 08-30 00:00: 00 Yes 12.5ug Take 0.5 tablets in the morning. [facility] liothyronin e 25 mcg tablet 0 08-30 00:00: 00 Yes 12.5ug Take 0.5 tablets in the morning. [facility] liothyronin e 25 mcg tablet 08-30 00:00: 00 Yes 12.5ug Take 0.5 tablets in the morning. [facility] liothyronin e 25 mcg tablet 08-30 00:00: 00 Yes 12.5ug Take 0.5 tablets in the morning. [facility] liothyronin e 25 mcg tablet 2022-0 2-16 00:00: 00 Yes 12.5ug Take 0.5 tablets in the morning. [facility] liothyronin e 25 mcg tablet 2022-0 2-16 00:00: 00 Yes 12.5ug Take 0.5 tablets in the morning. [facility] liothyronin e 25 mcg tablet 2022-0 2-16 00:00: 00 Yes 12.5ug Take 0.5 tablets in the morning. [facility] liothyronin e 25 mcg tablet 2022-0 2-16 00:00: 00 Yes 12.5ug Take 0.5 tablets in the morning. [facility] liothyronin e 25 mcg tablet 2022-0 2-16 00:00: 00 Yes 12.5ug Take 0.5 tablets in the morning. [facility] liothyronin e 25 mcg tablet 2022-0 216 00:00: 00 Yes [facility] liothyronin e 25 mcg tablet 2022-0 16 00:00: 00 Yes [facility] levothyroxi ne (SYNTHROID) 50 mcg tablet 2010-07 00:00: 00 Yes 50ug Take 1 Tab by mouth daily. [facility] levothyroxi ne (SYNTHROID) 50 mcg tablet 2010-07 00:00: 00 Yes 50ug Take 1 Tab by mouth daily. [facility] levothyroxi ne (SYNTHROID) 50 mcg tablet 2010-07 00:00: 00 Yes 50ug Take 1 Tab by mouth daily. [facility] levothyroxi ne (SYNTHROID) 50 mcg tablet 2010-07 00:00: 00 Yes 50ug Take 1 Tab by mouth daily. [facility] levothyroxi ne (SYNTHROID) 50 mcg tablet 2010-07 00:00: 00 Yes 50ug Take 1 Tab by mouth daily. [facility] levothyroxi ne (SYNTHROID) 50 mcg tablet 2010-07 00:00: 00 Yes 50ug Take 1 Tab by mouth daily. [facility] levothyroxi ne (SYNTHROID) 50 mcg tablet 2010-07 00:00: 00 Yes 50ug Take 1 Tab by mouth daily. [facility] levothyroxi ne (SYNTHROID) 50 mcg tablet 2010-07 00:00: 00 Yes 50ug Take 1 Tab by mouth daily. [facility] levothyroxi ne (SYNTHROID) 50 mcg tablet 2010-07 00:00: 00 Yes 50ug Take 1 Tab by mouth daily. [facility] levothyroxi ne (SYNTHROID) 50 mcg tablet 2010-07 00:00: 00 Yes 50ug Take 1 Tab by mouth daily. [facility] levothyroxi ne (SYNTHROID) 50 mcg tablet 2010-07 00:00: 00 Yes 50ug Take 1 Tab by mouth daily. [facility] levothyroxi ne (SYNTHROID) 50 mcg tablet 2010-07 00:00: 00 Yes 50ug Take 1 Tab by mouth daily. [facility] levothyroxi ne (SYNTHROID) 50 mcg tablet 2010-07 00:00: 00 Yes 50ug Take 1 Tab by mouth daily. [facility] levothyroxi ne (SYNTHROID) 50 mcg tablet 2010-07 00:00: 00 Yes 50ug Take 1 Tab by mouth daily. [facility] levothyroxi ne (SYNTHROID) 50 mcg tablet 2010-07 00:00: 00 Yes 50ug Take 1 Tab by mouth daily. [facility] levothyroxi ne (SYNTHROID) 50 mcg tablet 2010-07 00:00: 00 Yes 50ug Take 1 Tab by mouth daily. [facility] levothyroxi ne (SYNTHROID) 50 mcg tablet 2010-07 00:00: 00 Yes 50ug Take 1 Tab by mouth daily. [facility] levothyroxi ne (SYNTHROID) 50 mcg tablet 2010-07 00:00: 00 Yes 50ug Take 1 Tab by mouth daily. [facility] levothyroxi ne (SYNTHROID) 50 mcg tablet 2010-07 00:00: 00 Yes 50ug Take 1 Tab by mouth daily. [facility] lisinopril (ZESTRIL) 5 mg tablet 03-14 14:45: 52 Yes Take by mouth daily. [facility] amLODIPine (NORVASC) 5 mg tablet 03-14 14:45: 52 Yes 5mg Take 5 mg by mouth daily. [facility] cholecalcif cece, vitamin D3, (VITAMIN D) 1,000 unit tablet 03-14 14:45: 52 Yes 1000U Take 1,000 Units by mouth daily. [facility] lisinopril (ZESTRIL) 5 mg tablet 03-14 14:45: 52 Yes Take by mouth daily. [facility] amLODIPine (NORVASC) 5 mg tablet 03-14 14:45: 52 Yes 5mg Take 5 mg by mouth daily. [facility] cholecalcif cece, vitamin D3, (VITAMIN D) 1,000 unit tablet 03-14 14:45: 52 Yes 1000U Take 1,000 Units by mouth daily. [facility] lisinopril (ZESTRIL) 5 mg tablet 03-14 14:45: 52 Yes Take by mouth daily. [facility] amLODIPine (NORVASC) 5 mg tablet 03-14 14:45: 52 Yes 5mg Take 5 mg by mouth daily. [facility] cholecalcif cece, vitamin D3, (VITAMIN D) 1,000 unit tablet 03-14 14:45: 52 Yes 1000U Take 1,000 Units by mouth daily. [facility] lisinopril (ZESTRIL) 5 mg tablet 03-14 09:45: 52 Yes Take by mouth daily. [facility] amLODIPine (NORVASC) 5 mg tablet 03-14 09:45: 52 Yes 5mg Take 5 mg by mouth daily. [facility] cholecalcif cece, vitamin D3, (VITAMIN D) 1,000 unit tablet 03-14 09:45: 52 Yes 1000U Take 1,000 Units by mouth daily. [facility] lisinopril (ZESTRIL) 5 mg tablet 03-14 09:45: 52 Yes Take by mouth daily. [facility] amLODIPine (NORVASC) 5 mg tablet 03-14 09:45: 52 Yes 5mg Take 5 mg by mouth daily. [facility] cholecalcif cece, vitamin D3, (VITAMIN D) 1,000 unit tablet 03-14 09:45: 52 Yes 1000U Take 1,000 Units by mouth daily. [facility] Vital Signs Vital Name Observation Time Observation Value Comments Katelyn hernandezfrancisco Systolic blood pressure 2023-04-19 19:47:00 116 mm[Hg] [facility] Diastolic blood pressure 2023-04-19 19:47:00 78 mm[Hg] [facility] Heart rate 2023-04-19 19:47:00 69 /min [facility] Body height 2023-04-19 19:47:00 152.4 cm [facility] Body weight 2023-04-19 19:47:00 72.439 kg [facility] BMI 2023-04-19 19:47:00 31.19 kg/m2 [facility] Oxygen saturation in Arterial blood by Pulse oximetry 2023-04-19 19:47:00 97 /min [facility] Systolic blood pressure 2022-09-06 20:33:00 121 mm[Hg] [facility] Diastolic blood pressure 2022-09-06 20:33:00 77 mm[Hg] [facility] Heart rate 2022-09-06 20:33:00 81 /min [facility] Body temperature 2022-09-06 20:33:00 37.28 Gemma [facility] Body height 2022-09-06 20:33:00 152.4 cm [facility] Body weight 2022-09-06 20:33:00 70.67 kg [facility] BMI 2022-09-06 20:33:00 30.43 kg/m2 [facility] Oxygen saturation in Arterial blood by Pulse oximetry 2022-09-06 20:33:00 97 /min [facility] Procedures Procedure Date / Time Performed Performing Clinician Source BI SELF-REQUESTED SCREENING TOMOSYNTHESIS BILATERAL 2023-05-31 16:37:35 Mikal Osman [facility] ASSIGNMENT OF BENEFITS 2023-04-19 19:38:04 Radha r Unassigned, [place] [facility] CONSENT/REFUSAL FOR DIAGNOSIS AND TREATMENT 2023-04-19 19:37:50 Doctor Unassigned, [place] [facility] AUTHORIZATION TO RELEASE PHI TO [facility] 2022-09-06 06:01:00 Doctor Unassigned, [place] [facility] REFERRAL- REQUEST/RESPONSE 2022-08-29 06:01:00 Doctor Unassigned, [place] [facility] XR CERVICAL SPINE 3 VW 2021-12-26 16:34:46 Edward Shane [facility] ASSIGNMENT OF BENEFITS 2021-12-26 16:15:34 Radha r Unassigned, [place] [facility] Encounters Start Date/Time End Date/Time Encounter Type Admission Type Attending Clinicians Care Facility Care Department Encounter ID Source 2023-07-05 00:00:00 2023-07-05 00:00:00 Outpatient GC_GCBZW_Ka diyala_S PRIV PRIV [id number] [facility] 2023-06-07 00:00:00 2023-06-07 00:00:00 Outpatient GC_GCBZW_Ka diyala_S PRIV PRIV [id number] [facility] 2023-05-31 10:13:01 2023-05-31 23:59:00 Outpatient R LEXUS ESPINOZA [facility] [id number] [facility] 2023-05-31 10:13:01 2023-05-31 23:59:00 Hospital Encounter Lexus Espinoza [facility] [id number] 350.1.13.10 4.2.7.2.686 [id number] [facility] 2023-05-27 00:00:00 2023-05-27 00:00:00 [facility] [id number] 350.1.13.10 4.2.7.2.686 [id number] [facility] 2023-05-15 00:00:00 2023-05-15 00:00:[facility] [id number] 350.1.13.10 4.2.7.2.686 [id number] [facility] 2023-05-15 00:00:00 2023-05-15 00:00:00 Telephone Monse Nazario [facility] [id number] 350.1.13.10 4.2.7.2.686 [id number] [facility] 2023-05-10 00:00:00 2023-05-10 00:00:00 Outpatient GC_GCBZW_Ka diyala_S PRIV PRIV [id number] [facility] 2023-04-29 00:00:00 2023-04-29 00:00:00 Outpatient GC_GCBZW_Ka diyala_S PRIV PRIV [id number] [facility] 2023-04-29 00:00:00 2023-04-29 00:00:00 Outpatient GC_GCBZW_Ka diyala_S PRIV PRIV [id number] [facility] 2023-04-25 07:48:02 2023-04-25 23:59:00 Outpatient R AMY GOMEZTONJA [facility] [id number] [facility] 2023-04-25 07:48:02 2023-04-25 23:59:00 [facility] 1.[facility].840.114 350.1.13.10 4.2.7.2.686 [id number] [facility] 2023-04-19 15:00:00 2023-04-19 15:08:32 [id number] 2023-04-19 15:00:00 2023-04-19 15:08:32 Office Visit [facility] 1..840.114 350.1.13.10 4.2.7.2.686 [id number] [facility] 2023-04-19 00:00:00 2023-04-19 00:00:00 Orders Only Doctor Unassigned, [place] [facility] 1..840.114 350.1.13.10 4.2.7.2.686 [id number] [facility] 2023-02-19 00:00:00 2023-02-19 00:00:00 Outpatient GC_GCBZW_Ka diyala_S PRIV PRIV [id number] [facility] 2023-02-18 00:00:00 2023-02-18 00:00:00 Outpatient GC_GCBZW_Ka diyala_S PRIV PRIV [id number] [facility] 2022-09-06 14:00:00 2022-09-06 15:43:37 [facility] [id number] [facility] 2022-09-06 14:00:00 2022-09-06 15:43:37 Office Visit [facility] 1..840.114 350.1.13.10 4.2.7.2.686 [id number] [facility] 2022-09-06 00:00:00 2022-09-06 00:00:00 Orders Only Doctor Unassigned, [place] [facility] 1.2840.114 350.1.13.10 4.2.7.2.686 [id number] [facility] 2022-08-29 00:00:00 2022-08-29 00:00:00 Orders Only Doctor Unassigned, [place] [facility] 1.2840.114 350.1.13.10 4.2.7.2.686 [id number] [facility] 2021-12-26 11:18:06 2021-12-26 23:59:00 Outpatient R EDWARD SHANE [facility] [id number] [facility] 2021-12-26 11:15:00 2021-12-26 23:59:00 Hospital Encounter Edward Shane [facility] 1.840.114 350.1.13.10 4.2.7.2.686 [id number] [facility] 2021-12-26 00:00:00 2021-12-26 00:00:00 Orders Only Doctor Unassigned, [place] [facility] 1.2840.114 350.1.13.10 4.2.7.2.686 [id number] [facility] 2020-07-05 00:00:00 2020-07-05 00:00:00 Letter (Out) Visits, [place] Nurse [facility] 1.0.114 350.1.13.10 4.2.7.2.686 [id number] [facility] 2020-07-05 00:00:00 2020-07-05 00:00:00 Telephone Provider, [facility] Chastity [facility] [address] 1..114 350.1.13.10 4.2.7.2.686 [id number] [facility] 2020-07-04 18:36:49 2020-07-04 18:56:49 Laboratory Only Lab, Adc Fam Pob I Kalyani Romerobersarahy Ruiz [facility] 1.2.840.114 350.1.13.10 4.2.7.2.686 [id number] [facility] 2020-07-04 18:40:00 2020-07-04 18:40:00 Outpatient R YUNIOR RAPHAEL [facility] [id number] [facility] Results Test Description Test Time Test Comments Results Result Co mments Source SURG 2019-06-03 14:49:00 --------RUN DATE: 06/03/19 [facility] PAGE 1 RUN TIME: 1449 Specimen Inquiry RUN USER: INTERFACE --------PATIENT: ENMANUEL STEWART LOC: [facility] U #: [id number] AGE/SX: 38/F ROOM: RE06/02/19REG DR: Mikal Osman : 84 BED: DIS: STATUS: JULIA COLBY TLOC: -------- SPEC #: [id number] RECD: 06/02/19 STATUS: MACY CATHERINE #: [id number] GLORIA: 06/02/[address]: Mikal Osman MD ENTERED: 06/02/19 SP TYPE: SURG OTHR DR: Edward Salomon MD ORDERED: SURG PATH LVL 2, SURG PATH LVL 4/ COPIES TO: Mikal Osman MD [address] [facility] [place] [address] Edward Salomon MD [address] [place] [address] HISTOLOGY: TISSUE ID BLK PCS CASSI LEV PROCEDURE DISPOSITION ____ ___ ___ ___ PELVIC ORGANS A 1 1 FALLOPIAN TUBE, B 1 1 PELVIC ORGANS C 1 1 PROCEDURES: SURG PATH LVL 2 (06/02/19) SURG PATH LVL 4 (06/02/19) TISSUES: A. PELVIC ORGANS, NOS - ENDOMETRIAL CURETTING B. FALLOPIAN TUBE, NOS - LEFT AND RIGHT FALLOPIAN TUBE C. PELVIC ORGANS, NOS - LEFT LATERAL WALL UTEROSACRAL ENDOMETRIOSIS CLINICAL HISTORY EXCESSIVE MENSTRUATION -N92.0; PELVIC/ROBERT PAIN -R10.2 CPT CODES CPT CODE(S): 59149 , 35539M3 , , , , , FINAL DIAGNOSIS A. Uterus, endometrium, curettage: ENDOMETRIAL POLYP B. Fallopian tubes, left and right, salpingectomy: CONTINUED ON NEXT PAGE --------RUN DATE: 06/03/19 [facility] PAGE 2 RUN TIME: 1449 Specimen Inquiry RUN USER: INTERFACE --------SPEC #: [id number]:[id number] PATIENT: ENMANUEL STEWART #[id number] (Continued) FINAL DIAGNOSIS (Continued) FALLOPIAN TUBES WITH [...] submitted separately labeled B1 and B2 and telesales representative sections of the longer segments of [...] C1 and C2. ba/nr Grossing performed at [facility], [address] [place] [address], [address], [place] [address]. Candy Feeder: Bobby Daniel M.D. MICROSCOPIC DESCRIPTION A. Endometrial [...] Signed SIGNATURE ON FILE Mitch Rivas 06/03/19 1559 -------- END OF REPORT URINALYSIS [id number] 11:41:00* Test Item Value Reference Range Interpretation Comme nts UA GLUCOSE DIPSTICK (test code = DGLUU) NEGATIVE mg/dL NEG UA BILIRUBIN DIPSTICK (test code = BILU) NEGATIVE mg/dL NEG UA KETONE DIPSTICK (test code = KETU) NEGATIVE mg/dL NEG UA SPECIFIC GRAVITY (test code = SGU) 1.010 SG 1.005-1.030 UA BLOOD DIPSTICK (test code = DARYL) 3+ mg/DL NEG A UA PH DIPSTICK (test code = SHELBIE) 7.0 pH UNITS 5.0-7.0 UA PROTEIN DIPSTICK (test code = PROU) NEGATIVE mg/dL NEG UA UROBILINIOGEN DIPSTICK (test code = URO) 0.2 mg/dL <2.0 UA NITRITE DIPSTICK (test code = GERALDO) NEGATIVE SCREEN NEG UA LEUKOCYTE ESTERASE DIPSTICK (test code = LEUU) NEGATIVE Leuk/mcL NEGATIVE Urine Specimen Type: Clean CatchCBC W/AUTO [id number] 11:39:00* Test Item Value Reference Range Interpretation Comme nts WHITE BLOOD CELL (test code = WBC) 5.6 K/mm3 3.5-11.0 N RED BLOOD CELL (test code = RBC) 4.77 M/mm3 4.70-6.10 N HEMOGLOBIN (test code = HGB) 13.0 G/DL 10.4-14.9 N HEMATOCRIT (test code = HCT) 39.8 % 31.5-44.1 N MEAN CELL VOLUME (test code = MCV) 83.4 Fl 84.5-98.6 L MEAN CELL HGB (test code = MCH) 27.3 pg 27.0-34.2 N MEAN CELL HGB CONCETRATION ( test code = MCHC) 32.7 G/DL 31.5-34.0 N RED CELL DISTRIBUTION WIDTH (test code = RDW) 15.9 SD 11.5-14.5 H PLATELET COUNT (test code = PLT) 326.0 K/mm3 150-450 N MEAN PLATELET VOLUME (test c ode = MPV) 10.20 fL 7.0-10.5 N NEUTROPHIL % (test code = NT%) 59.7 [...] K/mm3 0.0-0.1 N MANUAL DIFF REQUIRED (test c ode = MDIFF) NO DIFF/SCN CRITERIA Notes Date/Time Note Provider Source 2019-06-02 12:58:00 [id number]pRs LlUbXXYdh+rSWtOywzSVKSYctNGXEWqJTi1176-82-39P89:5 8:00 [facility] ([facility])Post Anesthesia EvaluationREPORT#:[id number] REPORT STATUS: SignedDATE:06/02/19 TIME:1258 PATIENT: ENMANUEL STEWART UNIT #: [id number]#: [id number] ROOM/BED:: 82 AGE: 38 SEX: F ATTEND: Mikal Osman [facility] AUTHOR: Malissa Osorio CRNA * ALL edits or amendments must be made on the electronic/computer document * Post Anesthesia Evaluation Anes. changes from pre-op evalORM Surgeries: Surgery Date and Time: 06/02/2019 0900 Primary Procedure: ROBOTIC ASSISTED LAPAROSCOPIC Secondary Procedures: DIAGNOSTIC HYSTEROSCOPY CERVICAL DILATION UTERINE CURETTAGE Anesthetic: GETADate: 06/02/19Level of consciousness: no change, patient awake, able to answer questions, participate in this eval.Vital signs:Vital Signs: Date Time Temp Pulse Resp B/P B/P Pulse O2 O2 Flow FiO2 Mean Ox Delivery Rate 06/02 1245 68 11 106/56 97 Room air 06/02 1230 67 12 104/59 100 06/02 1225 68 13 110/58 100 06/02 1220 69 14 110/53 100 06/02 1215 87 22 107/56 100 06/02 1210 Simple 6.941883 mask 06/02 1210 37.0 90 13 104/55 100 Simple 6.525612 mask 06/02 1205 37.0 93 15 127/68 100 Simple 6.225631 mask 06/02 0715 36.9 59 18 128/72 100 Room air 0.367358 Cardiovascular: no change, CV system stable, vital signs stableRespiratory/Airway: respiratory system stablePain: adequately controlledHydration: adequateTemp status: normothermicPresence of N/V: noAnesthesia complications: noOther changes requiring f/u: noneConclusions: no apparent anes. issues at 1259 RPT #: [id number] OF REPORT CLClinical [id number]:58:00L.[id number] able for patient waqyIBSNWGGDIGQHQR1803-32-67L64:59:59 [facility] 2019-06-02 12:17:00 [id number] sb9QoQssSIaUFNp4FAR/YLjAD9Wix f9wzOwWb1oIv88qH7xrFmFTvd3f1tlY0hE1658-44-68C09:1 [id number] [facility] [id number] [place] [address] PATIENT NAME: ENMANUEL STEWART ADMIT DATE: 06/02/19ACCOUNT NO: [id number] ROOM NO: AGE: 38 REPORT TYPE: OPERATIVE REPORT SEX: F ADMITTING PHYSICIAN: ATTENDING PHYSICIAN: Mikal Osman MD OPERATION DATE: 06/02/2019 PREOPERATIVE DIAGNOSES: Menorrhagia, pelvic pain, dysmenorrhea, anddyspareunia. POSTOPERATIVE DIAGNOSES: Menorrhagia, pelvic pain, dysmenorrhea, dyspareunia,endometriosis, proximal hydrosalpinges. PROCEDURES PERFORMED:1. Diagnostic hysteroscopy, D and C.2. Diagnostic laparoscopy, bilateral salpingectomy, endometriosis excision andexcision of the skin keloid from her previous surgery, which is herappendectomy. SURGEON: Mikal Osman MD SHOULDER PAD MOLDER: MIRTA Medrano, licensed nursing assistant. ANESTHESIA: General endotracheal. ESTIMATED BLOOD LOSS: Minimal. SPECIMENS: Bilateral tubes, left lateral wall endometriosis, uterosacralligament both as one specimen and then endometrial curettings. COMPLICATIONS: No complications. DRAINS: No drains. The patient's condition is stable. FINDINGS: Endometrial cavity unremarkable. Thickened endometrial tissue. Bothtubal ostia visualized. 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 The ureter was dissected laterally and the entire implant was removed. There were bilateral hydrosalpinges in the proximal parts of the tied tubes andso bilateral salpingectomy was performed. INDICATIONS: The patient is a 38-year-old with the above complaints. She wasworked up and she was treated medically, but her pain has not gotten better, elisee discussed various options including various other conservative options and PATIENT NAME: ENMANUEL STEWART hysterectomy, both. Patient wanted to proceed with diagnostic laparoscopy,diagnostic hysteroscopy for D and C and then if endometriosis is found,endometriosis excision. This would be diagnostic and then if the diagnosis wasconfirmed for endometriosis, if the pain is not well resolved after theprocedure that we would put her on a GNRH antagonist for treatment ofendometriosis medically or Lupron. After understanding all these, she wasconsented and brought to the OR. PROCEDURE IN DETAIL: After informed consent was verified, she was taken back Deisy, placed in a supine fashion on the operating table. Arms were tucked by theside and placed in dorsal lithotomy position after anesthesia was given. Pelvicexam performed. Uterus anteflexed, the scar free from the uterus. No uterosacral nodularity was palpable. No adnexal masses were palpable. Abdomen vulva, vagina and perineum were prepped and draped in sterile fashion. Meade was placed to drain the bladder and speculum used to expose the cervix. Anterior lip grasped with Allis clamps. Diagnostic SlimLine hysteroscope wasused to enter the cervical canal under direct visualization. Uterine cavity wasentered. There was thickened endometrial tissue, but no intracavitary lesions. Both tubal ostia visualized. Scope removed. Curettings performed with a 4-0curette, handed off for permanent pathology. Diagnostic VCare inserted andFoley inserted and attached to a drainage bag. This area was then draped. A 1 cm supraumbilical incision was made removing the keloid in thesupraumbilical area which probably was the site of her port for laparoscopicappendectomy. This is a deep keloid and so this tissue was excisedcircumferentially after injecting with local 0.25% Marcaine with epinephrine inan elliptical fashion with a skin knife and then with the Bovie to remove therest of the scar. Once this keloid was completely removed, then the incisionedges were cauterized with the cautery. Then, fascia was picked up with 2 Allisclamps and incised, it was tagged on both sides with 0 Vicryl sutures andperitoneum entered sharply. S retractors placed. Frandy introduced and site ofentry was checked with the help of the 0.10 laparoscope. Once there was goodvisualization of the upper abdominal surfaces, which were unremarkable, then 8ports were placed on each side for the robotic arms about a handsbreadth awayfrom the midline on both sides. Once the trocars were placed optimally then therobot was docked from the side. The camera arm and both other arms were docked,then a bipolar fenestrated grasper was placed through the arm 1 on the right andthen the arm 2 had scissors. After going out of the console and making sure that the robotic arms were docked appropriately, then, procedure was started at the console. Good visualization of the entire pelvic cavity was conducted after the survey,both tubes and the proximal and left greater than the right were dilated. Sothe plan was to perform a bilateral salpingectomy. Then, pelvic peritoneum was closely visualized. There was a large endometriosisimplant. Two multiple implants on the left lateral wall and this was to be takendown once I removed the tubes. The rest of the pelvic cavity and the dxivtballppo-no-jdm in right lateral aspect were completely unremarkable. Onvisualization with the robot, the tiny spot on the right uterosacral did notappear to be endometriosis and so it was not removed. Anteriorly, there was a PATIENT NAME: ENMANUEL STEWART scar at the level of the bladder, but there was no endometriosis that wasvisualized. Both ovaries appeared to be healthy and normal. Physiologic cyston the right ovary. The bipolar was used to cauterize the base of the mesosalpinx and then it wascut and removed with monopolar scissors. The entire left tube was removed firstand the right tube was removed. The mesosalpinx was optimally secured forhemostasis. Then directed attention towards the endometriosis implant, thecourse of the left ureter was traced on the pelvic brim to the ureteric tunneland this was at the lateral margin of this large Oni-Masters sinus, which isabout 3 x 3 cm, so an incision was made on the pelvic peritoneum medial to theperiphery of the implant near the uterosacral and then the peritoneum was openedup and the endometriosis implants were removed by excising them off from thebase and circumferentially the incision was made with scissors either cold orhot and then the inferior aspect as well and this was peeled off laterally. After coming to the lateral aspect, the peritoneal incision was made anddissection was performed to dissect the ureter at the ureteric tunnel laterally. Then, the incision was made on the peritoneum with cold scissors to come downseparating the ureter and once the ureter fell off laterally, then heat was usedto excise the rest of the margin of the implant. Then, the base had a deepinfiltrating lesion and this was completely resected off the base from thevessels carefully with cautery and with monopolar scissors. Once all implantwas removed, this was pulled out, all the specimens were retrieved through thesecond arm port after removing the scissors. Then, the robotic part was done. The robot was undocked and using the regular camera, a thorough irrigation andsuction were performed. Pictures were taken and then trocars were removed underdirect vision and injected with Marcaine with epinephrine on both sides and thenthe umbilical port was also removed and fascia closed with the help of 0 PDS x1and then Vicryl sutures on the top. Then subcutaneous tissues brought togetherwith a 3-0 chromic and then all the skin incisions with 4-0 Monocryl. The VCareand Meade were removed. Instrument and sponge counts were correct at the end ofthe case. The patient tolerated the procedure well. She was recovered fromanesthesia and taken to PACU in stable condition. A 30 mg of Toradol IV weregiven until the patient before she woke. Dictated By: Mikal Osman MD WT: OP:L.NORA/KADSA/NTSDD: 06/02/2019 12:17:07DT: 06/02/2019 14:17:45Conf#: [id number]/DID#: [id number] Authenticated by Mikal Osman MD On 06/12/2019 04:04:09 PM at 1604 PATIENT NAME: ENMANUEL STEWART [id number]:17:00L.[id number] lable for patient gsacLWDTOZUSDYBGAE8962-16-66Q63:04:47 [facility] 2019-06-02 11:58:00 [id number]+ JOO8zQVm0xtITwHvWR1eMqRcbz/kW cGjANYDxdNwkucj1/8rOtkcPpIO8DhZnn18392-36-47H35:5 8:00 [facility] WorthBrief Op NoteREPORT#:[id number] REPORT STATUS: SignedDATE:06/02/19 TIME:1158 PATIENT: ENMANUEL STEWART UNIT #: [id number]#: [id number] ROOM/BED:: 82 AGE: 38 SEX: F ATTEND: Mikal Osman MDADM AUTHOR: Mikal Osman MD * ALL edits or amendments must be made on the electronic/computer document * Op/Inv Proc Note - BriefPre-procedure diagnosis:menorrhagia, pelvic pain, dysmenorrhea, dyspareuniaPost-procedure diagnosis: same as pre procedure dx (endometriosis)Procedures performed:hysteroscopy D Cdiagnostic laparoscopy bilateral salpingectomyendometriosis excisionPrimary Surgeon:Lanceistant(s): none (Franny PRESCOTT)Anesthesia: general anesthesiaFindings:1. dilated proximal tube left>right2. left lateral wall and uterosacral endometriosisComplications: noneEstimated blood loss in ml's: noneSpecimens removed/altered: 1. bilateral tubes; 2. EMC 3. bilateral tubesDrain(s): NoneApproach: laparoscopic (robot assisted)Disposition: plan to D/C home at 1204 RPT #: [id number] OF REPORT OPOperative [id number]:58:00L.[id number] ilable for patient ojreEIYKWAKNFTYLTC1457-98-33C99:05:06 [facility]
[2023-08-06 11:15] LABS: Absolute Lymphocytes (CBC) 2.1 K/uL (0.7-4.9); Hematocrit 43.1 % (36.0-45.0); Lymphocytes % 41.1 % (15.3-44.8); MCV 81.6 fL (80-100); MPV 7.7 fL (7.6-11.3); Platelets 289 thou/uL (152-406); RBC Red Blood Cell Count 5.28 M/uL (3.86-4.86)
[2023-08-06 11:22] LABS: Protime INR 1.37
[2023-08-06 11:34] LABS: ALT/SGPT 41 U/L (13-56); AST/SGOT 26 U/L (15-37); Albumin 3.7 g/dL (3.4-5.0); Alkaline Phosphatase 132 U/L (45-117); BUN Blood Urea Nitrogen 12 mg/dL (7-18); Bicarbonate 25 mEq/L (21-32); Bilirubin Direct < 0.1 mg/dL (0-0.2); Bilirubin Indirect, Calculated ND mg/dL (0.2-0.8); Bilirubin Total 0.2 mg/dL (0.2-1.0); Glomerular Filtration Rate 110 ml/min (=/>90); Glucose Level 108 mg/dL (74-106); Magnesium 1.9 mg/dL (1.6-2.4); NT PRO-BNP 46 pg/mL (<125); Potassium 3.9 mEq/L (3.5-5.1); Protein, Total 7.9 g/dL (6.4-8.2); Sodium Level 137 mEq/L (136-145); Troponin High Sensitivity 14.9 pg/mL (<58.9)
--- NOTE | 2023-08-06 11:49 | RAD REPORT ---
EXAM DESCRIPTION: CT - Chest For Pe Angio - 08/06/2023 11:42 am CLINICAL HISTORY: CHEST PAIN COMPARISON: Chest For Pe Angio dated 04/02/2017 TECHNIQUE: Dynamically enhanced axial 3 mm thick images of the chest were obtained during administra tion of <100> mL Isovue 370 IV contrast. Coronal and oblique reconstruction images were generated and reviewed. Exam utilizes a protocol for optimal evaluation of pulmonary arterial tree. Maximum intensity projections 3D imaging was utilized All CT scans are performed using dose optimization technique as appropriate and may include automated exposure control or mA/KV adjustment according to patient size. FINDINGS: Chest Wall: No suspicious thyroid nodules or pathologic lymphadenopathy. Lungs: No acute abnormality. Pleura: No significant effusions or pneumothorax. Mediastinum/analy: No pathologic lymphadenopathy. Pulmonary arteries/Aorta: No filling defect identified. No aortic aneurysm. Heart: No significant pericardial effusion. Normal heart size. Upper abdomen: No acute abnormality. Bones: No acute abnormality. IMPRESSION: Negative for pulmonary embolism. No acute findings in the chest.
--- NOTE | 2023-08-06 11:56 | EDPHYS ---
Physician Documentation [facility] Name: Juany Curtis Age: 42 yrs Sex: Female : 1980 Arrival Date: 08/06/2023 Time: 10:37 Bed 11 Private MD: ED Physician Spring Mejia HPI: 08/06 11:01 This 42 yrs old Female presents to ER via Ambulatory with complaints of Chest sp3 Pain, Arm Pain. 11:01 42-year-old female with a history of hypertension, renal artery stenosis, fibromuscular sp3 dysplasia, endometriosis presents to the ED with left-sided chest, shoulder and arm pain for several days. Patient initially had a video conference with her physician who started antibiotics for a presumed infection causing her symptoms. Patient also several weeks ago had MRI of her brain and neck to assess for dystrophy in those areas and associated blood vessels. She does not know the results of those tests. Regarding the current episode, the pain is getting worse so she presents to the ED for evaluation. She denies any prior cardiac history, dull substernal chest pain, nausea, vomit, diarrhea, dyspnea, shortness of breath, cough, fever, other URI symptoms, known sick contacts, travel history, prolonged immobilization, or any other signs or symptoms on ROS at this time.. 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 - Social history:: Smoking status: Patient denies any tobacco usage or history of. ROS: 11:02 Constitutional: Negative for fever, chills, and weight loss, Eyes: Negative for injury, sp3 pain, redness, and discharge, ENT: Negative for injury, pain, and discharge, Neck: Negative for injury, pain, and swelling, Abdomen/GI: Negative for abdominal pain, nausea, vomiting, diarrhea, and constipation, Back: Negative for injury and pain, : Negative for injury, bleeding, discharge, and swelling, MS/Extremity: Negative for injury and deformity, Skin: Negative for injury, rash, and discoloration, Neuro: Negative for headache, weakness, numbness, tingling, and seizure, Psych: Negative for depression, anxiety, suicide ideation, homicidal ideation, and hallucinations, Allergy/Immunology: Negative for hives, rash, and allergies, Endocrine: Negative for neck swelling, polydipsia, polyuria, polyphagia, and marked weight changes, 11:02 All other systems are negative, Exam: 11:02 Constitutional: This is a well developed, well nourished patient who is awake, alert, sp3 and in no acute distress. Head/Face: Normocephalic, atraumatic. Eyes: Pupils equal round and reactive to light, extra-ocular motions intact. Lids and lashes normal. Conjunctiva and sclera are non-icteric and not injected. Cornea within normal limits. Periorbital areas with no swelling, redness, or edema. Neck: Trachea midline, no thyromegaly or masses palpated, and no cervical lymphadenopathy. Supple, full range of motion without nuchal rigidity, or vertebral point tenderness. No Meningismus. Chest/axilla: Normal chest wall appearance and motion. Nontender with no deformity. No lesions are appreciated. Cardiovascular: Regular rate and rhythm with a normal S1 and S2. No gallops, murmurs, or rubs. Normal PMI, no JVD. No pulse deficits. Respiratory: Lungs have equal breath sounds bilaterally, clear to auscultation and percussion. No rales, rhonchi or wheezes noted. No increased work of breathing, no retractions or nasal flaring. Abdomen/GI: Soft, non-tender, with normal bowel sounds. No distension or tympany. No guarding or rebound. No evidence of tenderness throughout. Back: No spinal tenderness. No costovertebral tenderness. Full range of motion. Skin: Warm, dry with normal turgor. Normal color with no rashes, no lesions, and no evidence of cellulitis. MS/ Extremity: Pulses equal, no cyanosis. Neurovascular intact. Full, normal range of motion. Neuro: Awake and alert, GCS 15, oriented to person, place, time, and situation. Cranial nerves II-XII grossly intact. Motor strength 5/5 in all extremities. Sensory grossly intact. Cerebellar exam normal. Normal gait. Psych: Awake, alert, with orientation to person, place and time. Behavior, mood, and affect are within normal limits. 11:02 ECG was reviewed by the Attending Physician. EKG demonstrates normal sinus rhythm at 91 bpm with normal intervals, normal QRS, normal axis, normal axis ST segments without evidence of acute ischemia. Vital Signs: 10:51 BP 151 / 104; Pulse 115; Resp 18; Temp 98.4; Pulse Ox 98% on R/A; Weight 72.57 kg; iw Height 5 ft. 0 in. ; Pain 5/10; 10:54 BP 149 / 96; Pulse 105; Resp 16; Pulse Ox 99% on R/A; iw 10:51 Body Mass Index 31.25 (72.57 kg, 152.4 cm) iw 10:51 Pain Scale: Adult iw MDM: 10:56 Patient medically screened. sp3 11:03 Data reviewed: vital signs, nurses notes, lab test result(s), EKG, radiologic studies. sp3 ED course: 42-year-old female with chest pain into the left shoulder and left arm. Differential diagnosis is broad and includes acute coronary syndrome, traumatic injury/muscle strain, pulmonary embolism, vascular pathology including aorta, pneumonia, bronchitis, pleurisy, pneumothorax, among others. Workup will include EKG, laboratory values and CT scan of the chest PE protocol to assess. Disposition pending workup and patient course and further medical department surgical intervention as indicated based on results.. 11:53 ED course: Workup is negative including CT scan of the chest. We will give ketorolac 1 sp3 dose IV prior to discharge. Cardiac enzymes all negative and patient vital signs are improved as well. Follow-up PCP as needed.. 08/06 11:00 Order name: Basic Metabolic Panel; Complete Time: 11:50 3 08/06 11:00 Order name: CBC with Diff; Complete Time: 11: 3 08/06 11:00 Order name: LFT's; Complete Time: :50 3 08/06 11:00 Order name: Magnesium; Complete Time: :3 08/06 11:00 Order name: NT PRO-BNP; Complete Time: 11:50 3 08/06 11:00 Order name: PT-INR; Complete Time: 11: 3 08/06 11:00 Order name: Troponin HS; Complete Time: 11: 3 08/06 11:00 Order name: CT Chest For PE Angio; Complete Time: 11:50 sp3 08/06 11:00 Order name: EKG; Complete Time: : sp3 08/06 11:00 Order name: Cardiac monitoring; Complete Time: sp3 08/06 11:00 Order name: EKG - Nurse/Tech; Complete Time: 11: sp3 08/06 11:00 Order name: IV Saline Lock; Complete Time: sp3 08/06 11:00 Order name: Labs collected and sent; Complete Time: sp3 08/06 11:00 Order name: O2 Per Protocol; Complete Time: sp3 08/06 11:00 Order name: O2 Sat Monitoring; Complete Time: sp3 Administered Medications: 12:35 Drug: Ketorolac IVP 15 mg IVP once Route: IVP; Site: left antecubital; cp4 12:37 Follow up: Response: No adverse reaction cp4 Disposition Summary: 08/06/23 11:56 Discharge Ordered Notes: Location: Home sp3 Condition: Stable sp3 Diagnosis - Chest pain, unspecified sp3 Followup: sp3 - With: Private Physician - When: Upon discharge from the Emergency Department - Reason: Continuance of care Discharge Instructions: - Discharge Summary Sheet sp3 - Nonspecific Chest Pain, Adult sp3 Forms: - Medication Reconciliation Form sp3 - Thank You Letter sp3 - Antibiotic Education sp3 - Prescription Opioid Use sp3 - Patient Portal Instructions sp3 - Leadership Thank You Letter sp3 Signatures: Dispatcher [employer] eBttina Azar RN RN iw Spring Mejia MD MD sp3 Brittany Treviño cp4 Corrections: (The following items were deleted from the chart) 11: 11:02 ECG was reviewed by the Attending Physician. EKG demonstrates normal sinus rhythm sp3 at 90 bpm with normal intervals, normal QRS, normal axis, early J-point elevation and no ST/T changes to indicate any ischemia. sp3
--- NOTE | 2023-08-06 11:56 | ER ---
Nurse's Notes [facility] Name: Juany Curtis Age: 42 yrs Sex: Female : 1980 Arrival Date: 08/06/2023 Time: 10:37 Bed 11 Private MD: Diagnosis: Chest pain, unspecified Presentation: 08/06 10:51 Chief complaint: Patient states: having some left arm pain and chest pain under my left iw breast , pain started yesterday , pressure is constant in the arm. Coronavirus screen: At this time, the client does not indicate any symptoms associated with coronavirus-19. Initial Sepsis Screen: Does the patient meet any 2 criteria? No. Patient's initial sepsis screen is negative. Does the patient have a suspected source of infection? No. Patient's initial sepsis screen is negative. Risk Assessment: Do you want to hurt yourself or someone else? Patient reports no desire to harm self or others. 10:51 Method Of Arrival: Ambulatory iw 10:51 Acuity: CARLYLE 3 iw 12:38 Ebola Screen: Patient negative for fever greater than or equal to 101.5 degrees cp4 Fahrenheit, and additional compatible Ebola Virus Disease symptoms Patient denies exposure to infectious person. Patient denies travel to an Ebola-affected area in the 21 days before illness onset. No symptoms or risks identified at this time. Onset of symptoms was August 06, 2023. Triage Assessment: 12:38 General: Appears in no apparent distress. Behavior is calm, cooperative, appropriate cp4 for age. Pain: Complains of pain in chest. 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 - Social history:: Smoking status: Patient denies any tobacco usage or history of. Screenin:46 [facility] ED Fall Risk Assessment (Adult) History of falling in the last 3 months, cp4 including since admission No falls in past 3 months (0 pts) Confusion or Disorientation No (0 pts) Intoxicated or Sedated No (0 pts) Impaired Gait No (0 pts) Mobility Assist Device Used No (0 pt) Altered Elimination No (0 pt) Score/Fall Risk Level 0 - 2 = Low Risk Oriented to surroundings, Maintained a safe environment, Educated pt \T\ family on fall prevention, incl call for assistance when getting out of bed, Assessed \T\ reinforced patient's understanding of fall precautions, Hourly rounding (assess needs \T\ fall precautionary measures) done. Abuse screen: Denies threats or abuse. Nutritional screening: No deficits noted. Tuberculosis screening: No symptoms or risk factors identified. Assessment: 11:46 General: Appears in no apparent distress. Behavior is calm, cooperative, appropriate cp4 for age. Pain: Pain radiates to left arm Pain began suddenly. Cardiovascular: Reports chest pain. Vital Signs: 10:51 BP 151 / 104; Pulse 115; Resp 18; Temp 98.4; Pulse Ox 98% on R/A; Weight 72.57 kg; iw Height 5 ft. 0 in. ; Pain 5/10; 10:54 BP 149 / 96; Pulse 105; Resp 16; Pulse Ox 99% on R/A; iw 10:51 Body Mass Index 31.25 (72.57 kg, 152.4 cm) iw 10:51 Pain Scale: Adult iw ED Course: 10:42 Patient arrived in ED. ts1 10:43 Spring Mejia MD is Attending Physician. sp3 10:52 Triage completed. iw 10:53 Arm band placed on. iw 10:57 Brittany Treviño is Primary Nurse. cp4 11:06 EKG done, by ED staff, reviewed by Spring Mejia MD. mv 11:33 Note: new IV started in left AC, [address] Diffuse. . ls3 11:44 CT Chest For PE Angio In Process Unspecified. EDMS 11:46 Bed in low position. Call light in reach. Side rails up X 1. Client placed on cp4 continuous cardiac and pulse oximetry monitoring. NIBP monitoring applied. 11:46 No provider procedures requiring assistance completed. Inserted saline lock: 20 gauge cp4 in right antecubital area, using aseptic technique. Patient maintains SpO2 saturation greater than 95% on room air. 12:37 Provided Education on: chest pain. cp4 12:37 intact, bleeding controlled, No redness/swelling at site. Pressure dressing applied. cp4 Administered Medications: 12:35 Drug: Ketorolac IVP 15 mg IVP once Route: IVP; Site: left antecubital; cp4 12:37 Follow up: Response: No adverse reaction cp4 Medication: 11:46 VIS not applicable for this client. cp4 Outcome: 11:56 Discharge ordered by . sp3 12:37 Discharged to home ambulatory, cp4 12:37 Condition: stable 12:37 Discharge instructions given to patient, Instructed on discharge instructions, follow up and referral plans. Demonstrated understanding of instructions, follow-up care, 12:39 Patient left the ED. cp4 Signatures: Dispatcher [employer] EDBettina Tejada RN RN Antonieta Yee ls3 Spring Mejia MD MD sp3 Francisca Snell PAS PAS ts1 Brittany Treviño cp4 Roxi Calvillo
[2023-08-06 14:27] VITALS: BP 149/96; TEMP 98.4; O2SAT 99
--- NOTE | 2023-08-07 17:26 | EKG ---
Test Date: 2023-08-06 Test Time: 11:03:21 Confidential Investigator: MAGDALENA MEASUREMENT RESULTS: Intervals: Rate: 91 NE: 132 QRSD: 80 QT: 358 QTc: 440 [place]: P: 58 NE: 132 QRS: 67 T: 73 INTERPRETIVE STATEMENTS: Normal sinus rhythm Nonspecific ST abnormality Abnormal ECG No previous ECG available for comparison Electronically Signed On 08-07-23 17:23:36 WET POUR MIXER by George Garzon
== END ==
LOC: ER 10:37
DX: R07.89 Other chest pain (principal); I10 Essential (primary) hypertension; Z88.5 Allergy status to narcotic agent
CPT/HCPCS: 93005; 85025; 80048; 36415; 83735; 85610; 80076; 84484; 83880; 71275; 96374; 99285; Q9967

== ENCOUNTER 2024-08-11 10:41 | Emergency (ER) | payer OTHER ==
[2024-08-11 11:23] LABS: Absolute Eosinophils 0.1 K/uL (0-0.5); Absolute Lymphocytes (CBC) 1.9 K/uL (0.7-4.9); Absolute Monocytes 0.4 K/uL (0.1-1.3); Absolute Neutrophil 2.1 K/uL (1.8-8.0); Eosinophils % 1.5 % (0-4.4); Hematocrit 41.4 % (36.0-45.0); Hemoglobin 13.8 g/dL (12.0-15.0); Lymphocytes % 40.9 % (15.3-44.8); MCH 26.5 pg (27.0-35.0); MCHC 33.3 g/dL (32.0-36.0); MCV 79.5 fL (80-100); MPV 8.2 fL (7.6-11.3); Monocytes % 9.9 % (3.3-12.3); Neutrophils % 46.7 % (41.7-73.7); Nucleated Red Blood Cells % 0.1 % (0-0); Platelets 333 thou/uL (152-406); RBC Red Blood Cell Count 5.21 M/uL (3.86-4.86); Red Cell Distribution Width 16.6 % (12.1-15.2)
--- NOTE | 2024-08-11 12:01 | RAD REPORT ---
Procedure: Chest Single View HISTORY: Shortness of breath COMPARISON: 2017 FINDINGS: The lungs appear clear of acute infiltrate. No significant pleural effusion noted. The heart is normal size. IMPRESSION: No acute abnormality is displayed.
[2024-08-11 12:29] LABS: ALT/SGPT 23 U/L (13-56); AST/SGOT 17 U/L (15-37); Albumin 3.6 g/dL (3.4-5.0); Albumin/Globulin Ratio 0.9 (1.1-1.8); Alkaline Phosphatase 107 U/L (45-117); Anion Gap 9.4 mEq/L (5.0-15.0); BUN Blood Urea Nitrogen 12 mg/dL (7-18); Bicarbonate 24 mEq/L (21-32); Bilirubin Total 0.2 mg/dL (0.2-1.0); Globulin 3.8 g/dL (2.3-3.5); Glomerular Filtration Rate 112 ml/min (=/>90); Glucose Level 89 mg/dL (74-106); NT PRO-BNP 78 pg/mL (<125); Potassium 3.4 mEq/L (3.5-5.1); Protein, Total 7.4 g/dL (6.4-8.2); Sodium Level 137 mEq/L (136-145); Troponin High Sensitivity 13.4 pg/mL (<58.9)
[2024-08-11 12:34] LABS: Bilirubin Direct < 0.2 mg/dL (0-0.2)
--- NOTE | 2024-08-11 14:13 | ER ---
Nurse's Notes [facility] Name: Juany Curtis Age: 43 yrs Sex: Female : 1980 Arrival Date: 08/11/2024 Time: 10:41 Bed 19 Private MD: Diagnosis: Myalgia Presentation: 08/11 10:48 Chief complaint: Patient states: she has been having low back pain since Saturday ap3 08/08/24 along with shoulder pain and clavicle pain. patient also reports lightheadedness that started today as well. Coronavirus screen: At this time, the client does not indicate any symptoms associated with coronavirus-19. Ebola Screen: No symptoms or risks identified at this time. Initial Sepsis Screen: Does the patient meet any 2 criteria? No. Patient's initial sepsis screen is negative. Does the patient have a suspected source of infection? No. Patient's initial sepsis screen is negative. Risk Assessment: Do you want to hurt yourself or someone else? Patient reports no desire to harm self or others. Onset of symptoms was August 08, 2024. 10:48 Method Of Arrival: Ambulatory ap3 10:48 Acuity: CARLYLE 3 ap3 Triage Assessment: 10:52 General: Appears in no apparent distress. Behavior is calm, cooperative, appropriate ap3 for age. Pain: Complains of pain in back, left shoulder Pain currently is 4 out of 10 on a pain scale. Neuro: Level of Consciousness is awake, alert, obeys commands, Oriented to person, place, time, situation, Appropriate for age Reports lightheadedness. Cardiovascular: Patient's skin is warm and dry. Respiratory: Airway is patent Respiratory effort is even, unlabored, Respiratory pattern is regular, symmetrical. 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 - Infectious Disease History:: Denies. - Social history:: Smoking status: Patient denies any tobacco usage or history of. - Family history:: not pertinent. Screenin:53 [facility] ED Fall Risk Assessment (Adult) History of falling in the last 3 months, ap3 including since admission No falls in past 3 months (0 pts) Confusion or Disorientation No (0 pts) Intoxicated or Sedated No (0 pts) Impaired Gait No (0 pts) Mobility Assist Device Used No (0 pt) Altered Elimination No (0 pt) Score/Fall Risk Level 0 - 2 = Low Risk Oriented to surroundings, Maintained a safe environment, Educated pt \T\ family on fall prevention, incl call for assistance when getting out of bed, Assessed \T\ reinforced patient's understanding of fall precautions, Hourly rounding (assess needs \T\ fall precautionary measures) done, Used ambulatory aids as needed (educated on \T\ assisted with), Used gait belt as appropriate. Abuse screen: Denies threats or abuse. Nutritional screening: No deficits noted. Tuberculosis screening: No symptoms or risk factors identified. Assessment: 01:00 General: Appears comfortable, Behavior is calm, cooperative. Pain: Complains of pain in ha1 back Pain radiates to right leg Pain currently is 5 out of 10 on a pain scale. Quality of pain is described as aching, Pain began 2-3 days ago. Neuro: Level of Consciousness is awake, alert, obeys commands, Oriented to person, place, time, situation. Cardiovascular: Capillary refill < 3 seconds Patient's skin is warm and dry. Respiratory: Airway is patent Respiratory effort is even, unlabored, Respiratory pattern is regular, symmetrical. GI: No signs and/or symptoms were reported involving the gastrointestinal system. Abdomen is round non-distended. Derm: Skin is pink, warm \T\ dry. Musculoskeletal: Circulation, motion, and sensation intact. Range of motion: intact in all extremities. 11:34 Reassessment: called to exam room. No answer. Pt in XRAY at this time. building energy retrofit technician states ss she will bring pt back to room 19 as requested by charge nurse as soon as they are finished obtaining images. 12:05 Reassessment: Patient and/or family updated on plan of care and expected duration. Pain ha1 level reassessed. Patient is alert, oriented x 3, equal unlabored respirations, skin warm/dry/pink. 13:00 Reassessment: Patient and/or family updated on plan of care and expected duration. Pain ha1 level reassessed. Patient is alert, oriented x 3, equal unlabored respirations, skin warm/dry/pink. 14:10 Reassessment: Patient and/or family updated on plan of care and expected duration. Pain ha1 level reassessed. Patient is alert, oriented x 3, equal unlabored respirations, skin warm/dry/pink. Vital Signs: 10:48 BP 149 / 84; Pulse 88; Resp 18; Temp 98(O); Pulse Ox 100% on R/A; Weight 70.31 kg; ap3 Height 5 ft. 0 in. ; Pain 4/10; 12:05 BP 136 / 76; Pulse 82; Resp 17 S; Pulse Ox 97% on R/A; ha1 13:07 BP 138 / 76; Pulse 89; Resp 17 S; Pulse Ox 100% on R/A; ha1 13:25 BP 128 / 76; Pulse 80; Resp 17; Pulse Ox 100% on R/A; ha1 14:00 BP 124 / 71; Pulse 74; Resp 17 S; Pulse Ox 100% on R/A; ha1 10:48 Body Mass Index 30.27 (70.31 kg, 152.4 cm) ap3 10:48 Pain Scale: Adult ap3 ED Course: 10:44 Patient arrived in ED. ra3 10:50 Triage completed. ap3 10:53 Arm band placed on right wrist. ap3 10:55 Anupam Dowell MD is Attending Physician. rt 11:20 Influenza Screen (a \T\ B) Sent. bc6 11:20 Basic Metabolic Panel Sent. bc6 11:20 CBC with Diff Sent. bc6 11:21 NT PRO-BNP Sent. bc6 11:21 Troponin HS Sent. bc6 11:21 Initial lab(s) drawn, by me, sent to lab. EKG done, by ED staff, reviewed by Anupam Dowell MD Flu and/or RSV swab sent to lab. Inserted saline lock: 20 gauge in left antecubital area, using aseptic technique. Blood collected. Flushed with 10 mL NS. 11:30 Elena Davalos, RN is Primary Nurse. ha1 11:35 XRAY Chest (1 view) In Process Unspecified. EDMS 12:05 Patient has correct armband on for positive identification. Bed in low position. Call ha1 light in reach. Side rails up X 1. 12:05 Provided Education on: plan of care . ha1 14:35 No provider procedures requiring assistance completed. IV discontinued, intact, ha1 bleeding controlled, No redness/swelling at site. Pressure dressing applied. Administered Medications: No medications were administered Medication: 13:12 VIS not applicable for this client. ha1 Outcome: 14:13 Discharge ordered by . rt 14:35 Discharged to home ambulatory, ha1 14:35 Condition: stable 14:35 Discharge instructions given to patient, Instructed on discharge instructions, follow up and referral plans. Demonstrated understanding of instructions, follow-up care, 14:36 Patient left the ED. ha1 Signatures: Dispatcher [employer] EDMS Yolande Dong RN RN ss Prokisch, Amanda, RN RN ap3 Elena Davalos, MANSI RN ha1 Anupam Dowell MD MD rt Jeannie Sow bc6 Ivon Martinez ra3
--- NOTE | 2024-08-11 14:13 | EDPHYS ---
Physician Documentation [facility] Name: Juany Curtis Age: 43 yrs Sex: Female : 1980 Arrival Date: 08/11/2024 Time: 10:41 Bed 19 Private MD: ED Physician Anupam Dowell HPI: 08/11 12:01 This 43 yrs old Female presents to ER via Ambulatory with complaints of Back rt Pain - arm dull ache/lightheaded. 12:01 Patient presents to the ED with generalized bodyaches, worse in the shoulders, low back rt for the past few days. Patient states that she developed lightheadedness, shortness of breath today. States that that has improved but is still somewhat present. Denies other acute complaints at this time, symptoms are mild in severity, aching nature, nonradiating, no other aggravating or alleviating factors.. 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 - Infectious Disease History:: Denies. - Social history:: Smoking status: Patient denies any tobacco usage or history of. - Family history:: not pertinent. ROS: 12:01 Constitutional: Negative for fever, chills, and weight loss, Cardiovascular: Negative rt for chest pain, palpitations, and edema, Skin: Negative for injury, rash, and discoloration, 12:01 Respiratory: Positive for shortness of breath, Negative for cough, 12:01 Back: Positive for pain at rest, Negative for injury or acute deformity, 12:01 Neuro: Positive for near syncope, Negative for altered mental status, Exam: 12:01 Constitutional: This is a well developed, well nourished patient who is awake, alert, rt and in no acute distress. Head/Face: Normocephalic, atraumatic. Chest/axilla: Normal chest wall appearance and motion. Nontender with no deformity. No lesions are appreciated. Cardiovascular: Regular rate and rhythm with a normal S1 and S2. No gallops, murmurs, or rubs. Normal PMI, no JVD. No pulse deficits. Respiratory: Lungs have equal breath sounds bilaterally, clear to auscultation and percussion. No rales, rhonchi or wheezes noted. No increased work of breathing, no retractions or nasal flaring. Abdomen/GI: Soft, non-tender, with normal bowel sounds. No distension or tympany. No guarding or rebound. No evidence of tenderness throughout. Skin: Warm, dry with normal turgor. Normal color with no rashes, no lesions, and no evidence of cellulitis. MS/ Extremity: Pulses equal, no cyanosis. Neurovascular intact. Full, normal range of motion. Neuro: Awake and alert, GCS 15, oriented to person, place, time, and situation. Cranial nerves II-XII grossly intact. Motor strength 5/5 in all extremities. Sensory grossly intact. Cerebellar exam normal. Normal gait. 12:01 ECG was reviewed by the Attending Physician. Vital Signs: 10:48 BP 149 / 84; Pulse 88; Resp 18; Temp 98(O); Pulse Ox 100% on R/A; Weight 70.31 kg; ap3 Height 5 ft. 0 in. ; Pain 4/10; 12:05 BP 136 / 76; Pulse 82; Resp 17 S; Pulse Ox 97% on R/A; ha1 13:07 BP 138 / 76; Pulse 89; Resp 17 S; Pulse Ox 100% on R/A; ha1 13:25 BP 128 / 76; Pulse 80; Resp 17; Pulse Ox 100% on R/A; ha1 14:00 BP 124 / 71; Pulse 74; Resp 17 S; Pulse Ox 100% on R/A; ha1 10:48 Body Mass Index 30.27 (70.31 kg, 152.4 cm) ap3 10:48 Pain Scale: Adult ap3 MDM: 10:57 Medical Screening Exam initiated rt 16:20 Differential diagnosis: Flu, viral syndrome, ACS, pneumonia, musculoskeletal pain. Data rt reviewed: vital signs, nurses notes. Consideration of Admission/Observation Escalation of care including admission/observation considered. Benign workup, stable vital signs, no indications for admission at this time, patient stable for outpatient care with her primary care.. Independent interpretation of the following test(s) in the Emergency Department X-Ray: My interpretation is No infiltrate symptomatic rotation of x-ray images. Test considered but Not performed: CT: PE RC negative, low suspicion for PE, CT angiogram not indicated. Care significantly affected by the following chronic conditions: Hypertension. Counseling: I had a detailed discussion with the patient and/or guardian regarding the historical points, exam findings, and any diagnostic results supporting the discharge/admit diagnosis, lab results, radiology results, the need for outpatient follow up, to return to the emergency department if symptoms worsen or persist or if there are any questions or concerns that arise at home. Response to treatment: the patient's symptoms have mildly improved after treatment. 08/11 11:05 Order name: Basic Metabolic Panel; Complete Time: 12:36 rt 08/11 11:05 Order name: CBC with Diff; Complete Time: 12:05 rt 08/11 11:05 Order name: LFT's; Complete Time: 12:36 rt 08/11 11:05 Order name: NT PRO-BNP; Complete Time: 12:36 rt 08/11 11:05 Order name: Troponin HS; Complete Time: 12:36 rt 08/11 11:05 Order name: Influenza Screen (a \T\ B); Complete Time: 12:05 rt 08/11 11:05 Order name: XRAY Chest (1 view); Complete Time: 12:05 08/11 11:05 Order name: Cardiac monitoring; Complete Time: 12:24 rt 08/11 11:05 Order name: EKG - Nurse/Tech; Complete Time: 11:20 rt 08/11 11:05 Order name: IV Saline Lock; Complete Time: 11:20 08/11 11:05 Order name: Labs collected and sent; Complete Time: 12:24 rt 08/11 11:05 Order name: O2 Per Protocol; Complete Time: 12:24 08/11 11:05 Order name: O2 Sat Monitoring; Complete Time: 12:24 08/11 11:27 Order name: Labs - recollect needed: recollect green top; Complete Time: 12:24 bd EC:01 Rate is 89 beats/min. Rhythm is regular, Normal Sinus Rhythm with No ectopy. QRS [place] rt is Normal. MO interval is normal. QRS interval is normal. QT interval is normal. No Q waves. T waves are Normal. No ST changes noted. Interpreted by me. Administered Medications: No medications were administered Disposition Summary: 08/11/24 14:13 Discharge Ordered Notes: Location: Home rt Problem: new rt Symptoms: have improved rt Condition: Stable rt Diagnosis - Myalgia rt Followup: rt - With: Private Physician - When: 2 - 3 days - Reason: Discharge Instructions: - Discharge Summary Sheet rt - Nonspecific Chest Pain, Adult rt Forms: - Medication Reconciliation Form rt - Antibiotic Education rt - Prescription Opioid Use rt - Patient Portal Instructions rt - Leadership Thank You Letter rt Signatures: Dispatcher [employer] EDMS Jennyfer Ochoa Amanda, RN RN ap3 Anupam Dowell MD MD rt Corrections: (The following items were deleted from the chart) 11:05 11:05 BASIC METABOLIC PANEL+C.LAB.BRZ ordered. EDMS EDMS 11:05 11:05 CBC+H.LAB.BRZ ordered. EDMS EDMS 11:05 11:05 HEPATIC FUNCTION+C.LAB.BRZ ordered. EDMS EDMS 11:05 11:05 PROBNP+C.LAB.BRZ ordered. EDMS EDMS 11:05 11:05 Troponin High Sensitivity+C.LAB.BRZ ordered. EDMS EDMS 11:05 11:05 Influenza Screen (A \T\ B)+BA.LAB.BRZ ordered. EDMS EDMS 11:05 11:05 Chest Single View+RAD.RAD.BRZ ordered. EDMS EDMS
[2024-08-11 17:23] VITALS: TEMP 98
[2024-08-11 17:32] VITALS: O2SAT 100
[2024-08-11 17:34] VITALS: BP 124/71
--- NOTE | 2024-08-12 12:31 | EKG ---
Test Date: 2024-08-11 Test Time: 11:19:35 Unmanned Aircraft Systems Roboticist: CORTEZ MEASUREMENT RESULTS: Intervals: Rate: 89 DC: 140 QRSD: 78 QT: 376 QTc: 457 [place]: P: 51 DC: 140 QRS: 51 T: 56 INTERPRETIVE STATEMENTS: Normal sinus rhythm Normal ECG Compared to ECG 08/06/2023 11:03:21 ST (T wave) deviation no longer present Electronically Signed On 08-12-24 12:29:22 LANDCARE FACILITATOR by Kenan Anderson
== END 2024-08-11 14:36 | disposition home or self-care (01) ==
LOC: ER 10:41
DX: M79.10 Myalgia, unspecified site (principal); R55 Syncope and collapse; I10 Essential (primary) hypertension
CPT/HCPCS: 36415; 71045; 80048; 80076; 83880; 84484; 85025; 87804; 93005; 99284

== ENCOUNTER 2024-09-28 08:13 | Day surgery (SDC) | payer OTHER ==
[2024-09-25 11:58] LABS: Absolute Monocytes 0.4 K/uL (0.1-1.3); Anion Gap 6.5 mEq/L (5.0-15.0); Basophils % 0.7 % (0-1.3); Eosinophils % 0.4 % (0-4.4); Hematocrit 39.9 % (36.0-45.0); Lymphocytes % 37.1 % (15.3-44.8); MCH 26.1 pg (27.0-35.0); MCHC 32.7 g/dL (32.0-36.0); MCV 79.8 fL (80-100); Monocytes % 7.6 % (3.3-12.3); Neutrophils % 54.2 % (41.7-73.7); Platelets 354 thou/uL (152-406); Potassium 3.5 mEq/L (3.5-5.1); Red Cell Distribution Width 17.4 % (12.1-15.2)
[2024-09-28] MEDS: NA CHLORIDE 0.9% 1,000 ML ONE (08:42)
[2024-09-28] MEDS: CEFAZOLIN SODIUM 2 GM/VIAL ONE (09:57)
[2024-09-28] MEDS ORDERED: MIDAZOLAM HCL 2 MG/2 ML INJ ONE (10:23)
[2024-09-28] MEDS ORDERED: FENTANYL CITR 100 MCG/2 ML ONE (10:23)
[2024-09-28] MEDS ORDERED: LIDOCAINE 2% MPF 5 ML VIAL ONE (10:23)
[2024-09-28] MEDS ORDERED: ONDANSETRON 4 MG/2 ML VIAL ONE (10:23)
[2024-09-28] MEDS ORDERED: propofoL 200 MG/20 ML VIAL IV ONE (10:23)
[2024-09-28] MEDS ORDERED: GLYCOPYRROLATE 0.2 MG/ML SYR ONE (10:36)
[2024-09-28] MEDS ORDERED: dexAMETHasone 10 MG/ML VIAL ONE (10:40)
[2024-09-28] MEDS ORDERED: Mastisol Adhesive Liq ONE (10:54)
--- NOTE | 2024-09-28 11:05 | P.OP ---
Date of Service: 09/28/24 Preop diagnosis: Right arm mass Postop diagnosis: Same Procedure performed: Excision right arm mass 4 x 4 cm with layered closure Surgeon: Kit Nuñez MD Olive Picker: Drea TO Estimated blood loss: Minimal Specimen: Right arm mass Findings: Likely fat necrosis Anesthesia: General Complications: None Drains: None Fluids and blood products: Nonapplicable Disposition: Recovery room Operative note: Patient brought to the OR and placed in supine position. General anesthesia began. Patient prepped and draped in usual sterile fashion. Marcaine 0.5% plain locally. 15 blade used to make approximately a 5 cm incision. Subcu tissue divided and bleeding controlled with cautery. Deep to the subcutaneous tissue a large fat necrosis area was identified and excised. The mass was sent to pathology as specimen. This mass was approximately 4 x 4 cm. It appeared to be inflamed and necrotic fat. Wound irrigated bleeding controlled cautery. 3-0 chromic used to reapproximate subcutaneous tissue. 0 chromic also used to close skin. Sterile dressing applied. Patient awakened and taken to recovery room in good general condition. CC:
[2024-09-28] MEDS: MEPERIDINE HCL 25 MG/ML SYR ONE (11:14)
[2024-09-28 11:40] VITALS: BP 115/70; TEMP 97.9; O2SAT 100
[2024-09-28] MEDS ORDERED: TRAMADOL 37.5mg/APAP 325mg PER TAB ONE (12:06)
[2024-09-28] MEDS: TRAMADOL 37.5mg/APAP 325mg PER TAB PO PRN (12:09)
== END 2024-09-28 12:35 | disposition home or self-care (01) ==
LOC: OR 08:13
PROVIDERS: ATTEND Surgery
PROC: 0JBD0ZZ Excision of Right Upper Arm Subcutaneous Tissue and Fascia, Open Approach (ICD-10-PCS; principal; 2024-09-28 09:30)
DX: D17.21 Benign lipomatous neoplasm of skin and subcutaneous tissue of right arm (principal)
CPT/HCPCS: 11404; 85025; 80048; 36415; 88304; J2704; J2003; J2250; J3010; J1100; J2175; J2405; J7030; 88305

== ENCOUNTER 2024-10-15 20:18 | Emergency (ER) | payer OTHER ==
--- NOTE | 2024-10-15 22:39 | RAD REPORT ---
EXAMINATION: Upper Extremity W/ Cont CLINICAL INDICATION: Female, 44 years old.possible surgical site infection, contrast please RIGHT TECHNIQUE: CT above extremity was performed without contrast. Reformats were performed. One or more o f the following dose reduction techniques were used: Automated exposure control, adjustment of the mA and/or kV according to patient size, and/or iterative reconstruction. Unless otherwise specified, incidental findings do not require dedicated imaging follow-up. [id number]. COMPARISON: No prior exam. FINDINGS: Postsurgical changes along the posterior aspect of the right arm at the level of the midhumerus. No f luid collection identified. No underlying osseous abnormality. No radiopaque foreign bodies.. IMPRESSION: Postoperative changes along the dorsal aspect of the right arm at the level of the midhumerus without unexpected findings. No fluid collection, hematoma, or underlying osseous abnormality identified. Some skin thickening and mild subcutaneous edema is noted which may simply be postoperative though a cellulitis could appear similar.
[2024-10-16 01:11] LABS: Absolute Eosinophils 0.1 K/uL (0-0.5); Absolute Lymphocytes (CBC) 3.1 K/uL (0.7-4.9); Absolute Monocytes 0.7 K/uL (0.1-1.3); Absolute Neutrophil 5.1 K/uL (1.8-8.0); Basophils % 0.6 % (0-1.3); Eosinophils % 0.6 % (0-4.4); Hematocrit 40.2 % (36.0-45.0); Hemoglobin 13.2 g/dL (12.0-15.0); Lymphocytes % 34.4 % (15.3-44.8); MCH 26.3 pg (27.0-35.0); MCHC 32.8 g/dL (32.0-36.0); MCV 80.2 fL (80-100); Monocytes % 7.6 % (3.3-12.3); Neutrophils % 56.8 % (41.7-73.7); Nucleated Red Blood Cells % 0.1 % (0-0); Platelets 350 thou/uL (152-406); RBC Red Blood Cell Count 5.02 M/uL (3.86-4.86); Red Cell Distribution Width 17.7 % (12.1-15.2)
[2024-10-16 01:20] LABS: Albumin 3.7 g/dL (3.4-5.0); Albumin/Globulin Ratio 0.9 (1.1-1.8); Anion Gap 7.9 mEq/L (5.0-15.0); Bilirubin Total 0.3 mg/dL (0.2-1.0); Potassium 3.9 mEq/L (3.5-5.1); Protein, Total 7.7 g/dL (6.4-8.2)
--- NOTE | 2024-10-16 01:28 | EDPHYS ---
Physician Documentation [facility] Name: Juany Curtis Age: 44 yrs Sex: Female : 1980 Arrival Date: 10/15/2024 Time: 20:18 Bed 7 Private MD: ED Physician Anupam Dowell HPI: 10/16 00:14 This 44 yrs old Female presents to ER via Ambulatory with complaints of Fever, rt surgery on arm and pain. 00:14 Patient is 2 weeks out from an excision of a lipoma on the right upper arm by Dr. rt Nuñez. States that the pain to the incision site is hurting worse as of recent, saw Dr. Nuñez in the clinic yesterday, was started on Augmentin. The patient reports that she had a fever up to 100.7. Reports drainage, cloudy but not malodorous from the wound. Denies other acute complaints at this time, symptoms are moderate in severity, no other aggravating or alleviating factors.. 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 - Infectious Disease History:: Denies. - Social history:: Smoking status: Patient denies any tobacco usage or history of. - Family history:: not pertinent. ROS: 10/16 00:14 Constitutional: Negative for fever, chills, and weight loss, Cardiovascular: Negative rt for chest pain, palpitations, and edema, Respiratory: Negative for shortness of breath, cough, wheezing, and pleuritic chest pain, Abdomen/GI: Negative for abdominal pain, nausea, vomiting, diarrhea, and constipation, Skin: Negative for injury, rash, and discoloration, Neuro: Negative for headache, weakness, numbness, tingling, and seizure, MS/extremity: Positive for pain, Wound, Exam: 00:14 Constitutional: This is a well developed, well nourished patient who is awake, alert, rt and in no acute distress. Head/Face: Normocephalic, atraumatic. Chest/axilla: Normal chest wall appearance and motion. Nontender with no deformity. No lesions are appreciated. Cardiovascular: Regular rate and rhythm with a normal S1 and S2. No gallops, murmurs, or rubs. Normal PMI, no JVD. No pulse deficits. Respiratory: Lungs have equal breath sounds bilaterally, clear to auscultation and percussion. No rales, rhonchi or wheezes noted. No increased work of breathing, no retractions or nasal flaring. Abdomen/GI: Soft, non-tender, with normal bowel sounds. No distension or tympany. No guarding or rebound. No evidence of tenderness throughout. 00:14 Musculoskeletal/extremity: Surgical site appears to be well-healing, there is no surrounding erythema, however, it is tender to the touch, difficult to tell if there is a fluid collection or not. No purulence noted at the wound. Vital Signs: 10/15 20:56 BP 167 / 98; Pulse 85; Resp 16; Temp 98.5(O); Pulse Ox 100% ; Weight 71.21 kg (R); jb4 Height 5 ft. 0 in. (R); Pain 5/10; 10/16 01:35 BP 155 / 72; Pulse 87; Resp 17; Pulse Ox 98% on R/A; jr13 10/15 20:56 Body Mass Index 30.66 (71.21 kg, 152.4 cm) jb4 10/15 20:56 Pain Scale: Adult jb4 MDM: 10/15 21:33 Medical Screening Exam initiated rt 10/16 01:46 Differential diagnosis: Postoperative pain, abscess, surgical site infection. Data rt reviewed: vital signs, nurses notes. Consideration of Admission/Observation Escalation of care including admission/observation considered. Discussed admission with the patient, she states that she does not wish to be admitted, will follow-up as an outpatient, return precautions discussed.. Management of patient was discussed with the following: Miscellaneous Machine Operator: Discussed with Dr. Nuñez, states may observe overnight to the hospitalist service.. Independent interpretation of the following test(s) in the Emergency Department CT Scan: My interpretation is No fluid collection seen on interpretation of CT scan images. Care significantly affected by the following chronic conditions: Hypertension. Counseling: I had a detailed discussion with the patient and/or guardian regarding the historical points, exam findings, and any diagnostic results supporting the discharge/admit diagnosis, lab results, radiology results, the need for outpatient follow up, to return to the emergency department if symptoms worsen or persist or if there are any questions or concerns that arise at home. Response to treatment: There is no appreciated change of the patient's symptoms at this time. 10/15 21:42 Order name: CBC with Diff; Complete Time: 01:15 rt 10/15 21:42 Order name: CMP; Complete Time: 01:26 rt 10/15 23:37 Order name: CREATININE WHOLE BLOOD; Complete Time: 00:00 EDMS 10/15 22:29 Order name: Upper Extremity W/ Cont; Complete Time: 22:52 EDMS Administered Medications: No medications were administered Disposition Summary: 10/16/24 01:28 Discharge Ordered Notes: Location: Home rt Problem: new rt Symptoms: have improved rt Condition: Stable rt Diagnosis - Postoperative pain rt Followup: rt - With: Kit Nuñez MD - When: 2 - 3 days - Reason: Discharge Instructions: - Discharge Summary Sheet rt - Wound Care, Adult rt Forms: - Medication Reconciliation Form rt - Antibiotic Education rt - Prescription Opioid Use rt - Patient Portal Instructions rt - Leadership Thank You Letter rt Signatures: Dispatcher [employer] Mac Funes, RN RN jb4 Anupam Dowell MD MD rt Corrections: (The following items were deleted from the chart) 10/15 22:29 21:45 CT RIGHT KNEE WO CONTRAST ordered. EDTX EDMS
--- NOTE | 2024-10-16 01:28 | ER ---
Nurse's Notes [facility] Name: Juany Curtis Age: 44 yrs Sex: Female : 1980 Arrival Date: 10/15/2024 Time: 20:18 Bed 7 Private MD: Diagnosis: Postoperative pain Presentation: 10/15 20:56 Chief complaint: Patient states: My surgical site hurts worse than normal, it has jb4 drainage coming from it and now black dots forming in it. My shoulder is also hurting now. Coronavirus screen: At this time, the client does not indicate any symptoms associated with coronavirus-19. Ebola Screen: No symptoms or risks identified at this time. Initial Sepsis Screen: Does the patient meet any 2 criteria? No. Patient's initial sepsis screen is negative. Does the patient have a suspected source of infection? No. Patient's initial sepsis screen is negative. Risk Assessment: Do you want to hurt yourself or someone else? Patient reports no desire to harm self or others. Onset of symptoms was October 15, 2024. Transition of care: patient was not received from another setting of care. 20:56 Method Of Arrival: Ambulatory jb4 20:56 Acuity: CARLYLE 3 jb4 Triage Assessment: 20:58 General: Appears in no apparent distress. comfortable, Behavior is calm, cooperative, jb4 appropriate for age. Pain: Complains of pain in anterior aspect of right shoulder Pain does not radiate. Pain currently is 5 out of 10 on a pain scale. Quality of pain is described as stinging. Neuro: Level of Consciousness is awake, alert, obeys commands, Oriented to person, place, time, situation. Cardiovascular: Patient's skin is warm and dry. Respiratory: Airway is patent Respiratory effort is even, unlabored, Respiratory pattern is regular, symmetrical. Derm: Skin is intact, surgical site to the right upper arm. Skin is pink, warm \T\ dry. Musculoskeletal: Circulation, motion, and sensation intact. Range of motion: intact in all extremities. FINISHER COLD ROLLING: 20:58 LMP N/A - Hysterectomy, Not jb4 Historical: - Allergies: 20:57 Codeine; jb4 20:57 Morphine; jb4 20:57 Latex, Natural Rubber; jb4 20:57 Tramadol HCl; jb4 - PMHx: 20:57 Endometriosis; Hashimotos; fibro muscular dysplasia; Hypertension; Hypothyroidism; jb4 stenosis of renal artery; - PSHx: 20:57 section; hysterectomy; jb4 20:58 Mass removed from right upper arm; jb4 - Immunization history:: Adult Immunizations up to date. - Infectious Disease History:: Denies. - Social history:: Smoking status: Patient denies any tobacco usage or history of. - Family history:: not pertinent. Screenin:00 [facility] ED Fall Risk Assessment (Adult) History of falling in the last 3 months, vc1 including since admission No falls in past 3 months (0 pts) Confusion or Disorientation No (0 pts) Intoxicated or Sedated No (0 pts) Impaired Gait No (0 pts) Mobility Assist Device Used No (0 pt) Altered Elimination No (0 pt) Score/Fall Risk Level 0 - 2 = Low Risk Oriented to surroundings, Maintained a safe environment, Educated pt \T\ family on fall prevention, incl call for assistance when getting out of bed, Hourly rounding (assess needs \T\ fall precautionary measures) done. Abuse screen: Denies threats or abuse. Nutritional screening: No deficits noted. Tuberculosis screening: No symptoms or risk factors identified. Assessment: 10/16 00:50 Reassessment: No changes from previously documented assessment. Patient and/or family vc1 updated on plan of care and expected duration. Pain level reassessed. Patient is alert, oriented x 3, equal unlabored respirations, skin warm/dry/pink. 01:17 General: Appears comfortable, Behavior is calm, cooperative. Pain: Complains of pain in ha1 right upper arm Pain does not radiate. Pain currently is 4 out of 10 on a pain scale. Quality of pain is described as aching. Neuro: Level of Consciousness is awake, alert, obeys commands, Oriented to person, place, time, situation. Cardiovascular: Capillary refill < 3 seconds Patient's skin is warm and dry. Respiratory: Airway is patent Respiratory effort is even, unlabored, Respiratory pattern is regular, symmetrical. Derm: Skin is normal, Wound noted right bicep Wound is clean and dry. new clean dressing applied. Musculoskeletal: Circulation, motion, and sensation intact. Range of motion: intact in all extremities. Vital Signs: 10/15 20:56 BP 167 / 98; Pulse 85; Resp 16; Temp 98.5(O); Pulse Ox 100% ; Weight 71.21 kg (R); jb4 Height 5 ft. 0 in. (R); Pain 5/10; 10/16 01:35 BP 155 / 72; Pulse 87; Resp 17; Pulse Ox 98% on R/A; jr13 10/15 20:56 Body Mass Index 30.66 (71.21 kg, 152.4 cm) jb4 10/15 20:56 Pain Scale: Adult 4 ED Course: 10/15 20:40 Patient arrived in ED. gm2 20:46 Anupam Dowell MD is Attending Physician. rt 20:57 Triage completed. jb4 20:58 Arm band placed on right wrist. jb4 22:33 Upper Extremity W/ Cont In Process Unspecified. EDMS 10/16 00:49 Ashley Narvaez RN is Primary Nurse. vc1 00:50 Patient has correct armband on for positive identification. Bed in low position. Call vc1 light in reach. Provided Education on: CT. 01:28 Kit Nuñez MD is Referral Physician. rt 01:43 No provider procedures requiring assistance completed. IV discontinued, intact, jr13 bleeding controlled, No redness/swelling at site. Pressure dressing applied. Administered Medications: No medications were administered Medication: 00:50 VIS not applicable for this client. vc1 Outcome: 01:28 Discharge ordered by . rt 01:43 Discharged to home ambulatory, jr13 01:43 Condition: stable 01:43 Discharge instructions given to patient, Instructed on discharge instructions, follow up and referral plans. Demonstrated understanding of instructions, follow-up care, wound care, 01:46 Patient left the ED. jr13 Signatures: Dispatcher [employer] EDCA Mac Sandhu, RN MANSI jb4 Ashley Narvaez, RN RN vc1 Elena Davalos RN RN ha1 Anupam Dowell MD MD rt Negin Howard gm2 Stephen Olivares RN RN jr13
[2024-10-16 01:50] VITALS: TEMP 98.5
[2024-10-16 01:52] VITALS: BP 155/72; O2SAT 98
== END 2024-10-16 01:46 | disposition home or self-care (01) ==
LOC: ER 20:18
DX: G89.18 Other acute postprocedural pain (principal)
CPT/HCPCS: 36415; 73201; 80053; 82565; 85025; 99283